=== PATIENT | male | born 2000 | race Asian ===

== ENCOUNTER → 2024-01-05 11:30 | Outpatient (REF) | payer OTHER, SELFPAY ==
--- NOTE | 2024-01-05 11:34 | HM_ITS ---
* Total monitoring time 3 days. * Underlying rhythm is sinus with an average rate of 71/Min. * Sinus tachycardia noted. * Occasional ventricular ectopy with a burden of 0.5%. * Rare supraventricular ectopy. * No significant pauses or AV blocks. * No patient markers or diary events. MTDD
== END ==
LOC: HO.CARD 11:30
PROVIDERS: Visit Provider Internal Medicine Nephrology
DX: R00.2 Palpitations (principal)
CPT/HCPCS: 93242

== ENCOUNTER → 2024-01-05 11:34 | Outpatient (BNV) | payer OTHER, SELFPAY | PROVIDERS: Visit Provider Internal Medicine | DX: R00.0 Tachycardia, unspecified (principal) | CPT/HCPCS: 93244 ==

== ENCOUNTER 2024-08-24 09:03 | Outpatient (REF) | payer OTHER, SELFPAY ==
--- OUTSIDE RECORDS SUMMARY | 2024-08-24 09:10 | XMS_ITS ---
Author Name [facility] Organization Unknown History of Medication Use Medication Directions Dispensed Refills Start Date End Date Stat No known medications No known medications 2022 active albuterol (PROVENTIL HFA; VENTOLIN HFA) 108 (90 Base) MCG/ACT inhaler Inhale 2 puffs 4 times daily (every 6 hours) as needed for wheezing or shortness of breath. 06/15/2022 active famotidine (PEPCID) 20 MG tablet Take 1 tablet (20 mg total) by mouth 2 (two) times a day. 11/12/2023 active Problems Problem Status Onset Date Problem Type Date of Resoluti on Source Chronic rhinitis active 2020-10-19 ProblemAct [facility] Wheezing active 2008-10-16 ProblemAct [facility] Renal dysplasia active 2020-02-29 ProblemAct HH CCT Need for vaccination active EncounterDiagnosisA ct CCT Asthma active 2020-02-29 ProblemAct CCT Abdominal bloating active EncounterDiagnosisAct [facility] Screen for STD (sexually transmitted disease) active EncounterDiagnosisAct [facility] Acute upper respiratory infection active 2008-10-20 ProblemAct [facility] Viremia active 2023-11-10 ProblemAct [facility] Immunizations Vaccine Date Source Lot Number Status Hep B, Unspecified 12/16/2006 [facility] comple vu Hepatitis A 02/16/2020 [facility] [id number] completed OPV 09/26/2000 [facility] completed DTaP, Unspecified 1999 [facility] complet ed OPV 1999 [facility] completed MMR 03/19/2007 [facility] completed DTaP, Unspecified 1999 [facility] complet ed OPV 1999 [facility] completed MMR 04/19/2001 [facility] completed Hib 09/26/2000 [facility] completed BCG 1999 [facility] completed Meningococcal Serogroup B 2-Dose 04/18/2020 [facility] ABX [id number] completed Meningococcal Serogroup B 2-Dose 02/16/2020 [facility] ABX [id number] completed HPV Nonavalent 11/10/2023 [facility] [id number] completed Hib 1999 [facility] completed DTaP, Unspecified 05/16/2005 [facility] complet ed Hib 1999 [facility] completed Meningococcal MCV4P (Menactra) 02/28/2016 [facility] [id number] completed OPV 05/16/2005 [facility] completed Hep B, Unspecified 03/19/2007 [facility] tai womack Tdap 01/01/2012 [facility] [id number] completed DTaP, Unspecified 09/26/2000 [facility] complet ed Hep B, Unspecified 10/20/2006 [facility] tai womack
[2024-08-24 10:37] LABS: MANUAL DIFF FLAG NO
[2024-08-24 10:41] LABS: Basophils Absolute Auto 0.1 X10*3/uL (0.0-0.2); Basophils Percent Auto 0.9 % (0-2); Eosinophils Absolute Auto 0.2 X10*3/uL (0.0-0.4); Eosinophils Percent Auto 2.3 % (0-4); Hemoglobin 17.2 g/dl (14.0-18.0); Imm Gran Abs Auto 0.04 X10*3/uL (0.00-0.03); Imm Gran Pct Auto 0.5 % (0.0-0.4); Lymphocytes Absolute Auto 2.7 X10*3/uL (1.2-4.9); Lymphocytes Percent Auto 32.4 % (20-40); Mean Corpuscular HGB Conc 34.4 g/dl (31.0-36.0); Mean Corpuscular Volume 84.2 fL (80.0-98.0); Mean Platelet Volume 10.5 fL (9.4-12.4); Monocytes Absolute Auto 0.7 X10*3/uL (0.1-1.2); Monocytes Percent Auto 8.5 % (2-11); Neutrophils Absolute Auto 4.5 x10*3/uL (2.0-8.3); Neutrophils Percent Auto 55.4 % (45-73); Platelet Count 218 X10*3/uL (160-400); Red Blood Count 5.94 X10*6/uL (4.60-5.80); Red Cell Distribution Width 12.2 % (11.0-16.0); White Blood Count 8.2 X10*3/uL (4.8-10.8)
[2024-08-24 11:03] LABS: Alanine Aminotransferase 25 U/L (0-40); Anion Gap 8 (12-20); Aspartate Amino Transferase 21 U/L (5-37); Blood Urea Nitrogen 17 mg/dL (9-16); Calcium 9.4 mg/dL (8.4-10.2); Carbon Dioxide 33 mmol/L (22-29); Chloride 102 mmol/L (96-108); Cholesterol 194 mg/dL (<200); Estimated Glomerular Filt Rate > 60; HDL Cholesterol 49 mg/dL (>40); Iron 126 mcg/dL (45-160); LDL Cholesterol Calculated 122 mg/dL (<100); Percent Iron Saturation 51 % (15-50); Potassium 4.1 mmol/L (3.3-5.1); Sodium 139 mmol/L (135-145); Total Iron Binding Capacity 247 mcg/dL (228-428); Triglycerides 119 mg/dL (<150); Unsaturated Iron Binding 121 ug/dL
[2024-08-24 11:12] LABS: Ferritin 308 ng/mL (20-250); TSH reflex Free T4 2.74 uIU/mL (0.32-4.0); Vitamin D 25-OH Total 28.4 ng/mL (>30)
[2024-08-24 11:21] LABS: Creatinine Urine 190.69 mg/dL; Total Protein Urine Random < 7 mg/dL (<12)
[2024-08-27 18:44] LABS: Gliadin Deamidated IgA Ab 1.1 U/mL; Gliadin Deamidated IgG Ab <1.0 U/mL; Immunoglobulin A 95 mg/dL (47-310); Transglutaminase Ab IgG <1.0 U/mL; Transglutaminase IgA <1.0 U/mL
[2024-08-29 22:58] LABS: CK-BB None Detected (None Detected); CK-MB 0 % (<5); CK-MM 100 % (95-100); Creatine Kinase,Total,Serum 99 U/L (44-196)
== END 2024-08-24 09:04 | disposition home or self-care (01) ==
LOC: HO.10HDL 09:03
PROVIDERS: Visit Provider Internal Medicine Nephrology
DX: Z00.00 Encounter for general adult medical examination without abnormal findings (principal); M79.10 Myalgia, unspecified site; R14.0 Abdominal distension (gaseous); R10.9 Unspecified abdominal pain
CPT/HCPCS: 36415; 80051; 80061; 82306; 82310; 82552; 82565; 82570; 82728; 82784; 83540; 84156; 84443; 84450; 84460; 84520; 85025; 86258; 86364

== ENCOUNTER 2024-08-26 11:34 | Outpatient (REF) | payer OTHER, SELFPAY | END 2024-08-26 11:35 | disposition home or self-care (01) | LOC: HO.10HDL 11:34 | PROVIDERS: Visit Provider Internal Medicine Nephrology | DX: R79.89 Other specified abnormal findings of blood chemistry (principal) | CPT/HCPCS: 36415; 81256 ==

== ENCOUNTER 2025-01-04 10:28 | Outpatient (AMB) | payer BC, SELFPAY ==
--- NOTE | 2025-01-04 10:37 | A.OFFVIS_ITS ---
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 Three weeks ago he started feeling palpitations and weakness. He said he was in the clinic during his rotation when he started feeling racing of his heart and palpitations. He said he subsequently felt very giddy and tired. Since then he has been experiencing that when he stands up and walks short distances his heart starts racing. He is saying that he is usually slow in his 50s but with the Apple watch he has noticed his heart rate to be as high as 100 at times. This is unusual for him. Was in at [employer] and was exercising regularly until a year ago. He has no skin rashes but gets some GI complaints off and on. He also had barotrauma in 2016 and had some dizziness and still gets some fullness in his ears and neck pain but current symptoms were are not related to those episodes. He had EKGs done before which showed T-wave inversions in the lateral leads. Previously had mildly elevated ferritin level but his genetic testing for hemochromatosis was negative. [facility] Family History (Updated 01/04/25 @ 10:42 by ALISA Ramirez) Father No problems noted. Mother No problems noted. Social History (Updated 01/04/25 @ 10:42 by ALISA Ramirez) Patient Tobacco Use Status: Never used Tobacco Review of Systems Const Denies chills, Denies daytime sleepiness, Denies fatigue, Denies fever(s), Denies frequent falls, Denies poor appetite, Denies snoring, Denies stops breathing during sleep, Denies weakness, Denies weight gain and Denies weight loss Eyes Denies loss of vision ENT Denies dizziness and Denies hearing loss Card Denies chest pain, Denies claudication, Denies leg edema, Denies lightheadedness, Denies palpitations, Denies dyspnea, Denies dyspnea on exertion and Denies orthopnea Resp Denies cough, Denies excessive phlegm production, Denies dyspnea, Denies dyspnea on exertion, Denies snoring and Denies wheezing GI Denies abdominal pain, Denies hematochezia, Denies change in bowel habits, Denies nausea and Denies vomiting Denies dysuria and Denies urinary frequency Musc Denies arthralgias, Denies muscle weakness, Denies numbness and Denies other (frequent falls) Skin/Breast Denies nail changes and Denies rash Neuro Denies Abnormal speech present, Denies dizziness, Denies frequent falls, Denies loss of vision, Denies memory loss, Denies numbness and Denies weakness Psych Denies depression and Denies memory loss Endo Denies fatigue and Denies palpitations Jesus/Lymph Reports easy bruising and Reports other (anemia) Aller/Immun Denies wheezing Physical Exam Vital Signs: Last Vital Signs Pulse 67 01/04/25 10:38 BP 124/82 01/04/25 10:38 BMI result Body Mass Index 26.1 GENERAL APPEARANCE: in no acute distress, pleasant. NECK: no carotid bruit, no jugular venous distention. SKIN: no suspicious lesions, warm and dry. HEART: no murmurs, regular rate and rhythm. LUNGS: clear to auscultation bilaterally. ABDOMEN: soft, nontender. EXTREMITIES: no edema. PERIPHERAL PULSES: equal. NEUROLOGIC: No gross deficits, AAO X 3 Neuro Speech: No Abnormal speech present Office Procedures EKG Details: Sinus rhythm 67 beats per minute, normal axis nonspecific T-wave changes, septal infarct, QTC 365 milliseconds. [id number], Complete Assessment & Plan Assessment & Plan (1) Palpitations: Code(s): R00.2 - Palpitations Category: Medical (2) Dizziness: Code(s): R42 - Dizziness and giddiness Category: Medical Plan Pleasant 24 year gentleman who is here for dizziness and palpitations. Symptoms started approximately 3 weeks ago but he did have some palpitations a year so ago to when he had Holter monitor on him. He is saying he was not getting dizzy at that time but was getting episodic tachycardia. Physical examination and EKG are not suggestive of any obvious pathology. His main issue currently is intolerance of upright posture. I think we should start with start loading and hydration. I have advised him to drink Gatorade and started doing upright exercise like exercise bike or rowing machine. We will arrange an echocardiogram to rule out any structural heart issues. We will do 14 day Holter monitor to rule out any arrhythmia. If there is any change in symptomatology then he will reach out to us. Thank you for allowing me to participate in the care of your patient. Please feel free to contact me if you have any questions. Orders: Orders CA echo transthoracic complete Today R42 - Dizziness and giddiness ECG 14 day holter monitor Today R42 - Dizziness and giddiness Medications: Discontinued levofloxacin Discontinued Reason: Patient Completed Course 500 mg PO DAILY 7 tabs 0RF Coding Level of Care Code Procedure Only Diagnoses Palpitations R00.2 Dizziness R42 CPT Codes EKG - CPT: 51394-[id number], Complete ([id number])
[2025-01-04 10:38] VITALS: BP 124/82; PULSE 67; BMI 26.1
--- OUTSIDE RECORDS SUMMARY | 2025-01-04 11:50 | XMS_ITS | Clinical Summary ---
Author Organization [facility] Facility Address [address] [place] [id number] Care Team Providers Care Marine Engine Driver Name Role Phone Unavailable Primary Care Provider Unavailabl e Active Problems Problem Noted Date Diagnosed Date Well adult check up 09/04/2022 Social History Tobacco Use Types Packs/Day Years Used Date Smoking Tobacco: Never Assessed Sex and Gender Information Value Date Recorded Sex Assigned at Not on file Legal Sex Male 4:57 PM EST Gender Identity Not on file Sexual Orientation Not on file Plan of Treatment Health Maintenance Due Date Last Done Comments Hepatitis B Vaccine (1 of 3 - 19+ 3-dose series) 06/02 Pneumococcal Vaccine: Peds ( 0 to 5 Years) and At-Risk Patients (6 to 49 Years) (1 of 2 - PCV) 2018 Influenza Vaccine (Season Ended) 2025
--- OUTSIDE RECORDS SUMMARY | 2025-01-04 11:50 | XMS_ITS | Clinical Summary ---
Author Organization [facility] Address [address] [place] [id number] Care Team Providers Care Care Analyst Name Role Phone Gautam Dougherty MD Primary Care Provider [phone] Allergies No known active allergies Medications No known medications Social History Tobacco Use Types Packs/Day Years Used Date Smoking Tobacco: Never Smokeless Tobacco: Never Alcohol Use Standard Drinks/Week Comments No 0 (1 standard drink = 0.6 oz pur e alcohol) Sex and Gender Information Value Date Recorded Sex Assigned at Not on file Legal Sex Male 5:39 AM EST Gender Identity Not on file Sexual Orientation Not on file Last Filed Vital Signs Vital Sign Reading Time Taken Comments Blood Pressure 139/81 08/03/2019 10:44 AM EST Pulse 59 08/03/2019 10:44 AM EST Temperature - - Respiratory Rate 16 07/30/2019 3:49 PM EST Oxygen Saturation 100% 07/30/2019 3:49 PM EST Inhaled Oxygen Concentration - - Weight - - Height - - Body Mass Index - - Plan of Treatment Health Maintenance Due Date Last Done Comments HIV Screening 1999 HPV Vaccines (1 - Male 3-dose series) 2014 DTaP,Tdap,and Td Vaccines (5 - Td or Tdap) 12/31/2021 01/01/2012, 05/16/2005, 09/26/2000, Additional history exists COVID-19 Vaccine ( - 2023- season) 2024 Influenza Vaccine (Season Ended) 2025 Zoster Vaccines (1 of 2) 2049 Hepatitis B Vaccines Completed 03/19/2007, 12/16/2006, 10/20/2006 MMR Vaccines Completed 03/19/2007, 04/19/2001 Meningococcal Vaccine Completed 02/28/2016 Hepatitis A Vaccines Aged Out No long er eligible based on patient's age to complete this topic Pneumococcal Vaccine: Pediatrics (0 to 5 Years) and At-Risk Patients (6 to 49 Years) Aged Out No longer eligible based on patient's age to complete this topic Insurance [employer] OPEN ACCESS Care Teams Care Analyst Relationship Specialty Start Date End Date Gautam Dougherty MD [address] [place] [id number] PCP - General Pediatrics 07/30/19
--- OUTSIDE RECORDS SUMMARY | 2025-01-04 11:50 | XMS_ITS | Data Portability ---
Author Organization [place] - [facility], [facility] Address [address] [place] [address] Assessment Encounter Date Assessment Date Assessment LastModified by Organization Details LastModified Time 02/21/2016 02/21/2016 Healthy 15 year old. Nl Growth and dev renal scarring- was seen by Dr Paty key reflux- was stable when followed up 7years ago- Asthma- uses alb on occasion. uses alb rarely with sport Cards- ? split S2- will get cards eval- ? ASD jyunis Not available 02/21/2016 17:28:14 11/16/2017 11/16/2017 Healthy 17 year old. Nl Growth and dev renal scarring- was seen by Dr Paty key reflux- was stable when followed up 9years ago - overdue for MYRON Wong will schedule Asthma- uses alb on occasion. uses alb rarely with sport jyunis Not available 11/16/2017 13:51:53 02/16/2020 02/16/2020 Healthy 19 year old. Nl Growth and dev renal scarring- was seen by Dr Paty key reflux- was stable when followed up 9years ago - overdue for MYRON Wong will schedule Asthma- uses alb on occasion. uses alb rarely with sport some issues with incompleted emptying- has a urology eval in 2 weeks week jyunis Not available 02/16/2020 10:38:01 Plan of Treatment Reminders Order Date Submit Date Provider Last Modified By Organization Details Last Modified Time Details Appointments None recorded. Lab CBC w/ auto diff 2019 020 DANK [facility], [address], [address], [place], [address], 0 14:40:18 lipid panel, serum 2019 [facility], [address], [address], [place], [address], 0 14:40:16 BMP, serum or plasma 2019 020 [facility], [address], [address], [place], [address], 0 14:40:17 protein, total, urine 2019 020 [facility], [address], [address], [place], [address], 0 14:40:18 CT + NG DNA, PCR, urine 2019 020 DANK [facility] (Centralized Electronic Ordering - All Locations), Patient Can Go To The Location Of Their Choice, 0 08:00:41 CBC w/ auto diff 2017 018 jyunis [facility] (Centralized Electronic Ordering - All Locations), Patient Can Go To The Location Of Their Choice, 8 17:00:33 lipid panel, serum 2017 018 jyunis [facility] (Centralized Electronic Ordering - All Locations), Patient Can Go To The Location Of Their Choice, 8 17:00:33 BMP, serum or plasma 2017 018 jyunis [facility] (Centralized Electronic Ordering - All Locations), Patient Can Go To The Location Of Their Choice, 8 17:00:33 protein, total, urine 2017 018 jyunis [facility] (Centralized Electronic Ordering - All Locations), Patient Can Go To The Location Of Their Choice, 8 17:00:33 urinalysis , complete 2015 016 DBA_PATCH_ [id number] [facility] (Centralized Electronic Ordering - All Locations), Patient Can Go To The Location Of Their Choice, [id number] 6 04:08:56 protein/cr eatinine, ratio, urine 2015 016 cprouty [facility] (Centralized Electronic Ordering - All Locations), Patient Can Go To The Location Of Their Choice, [id number] 7 14:19:50 creatinine , blood 2015 016 DBA_PATCH_ [id number] [facility] (Centralized Electronic Ordering - All Locations), Patient Can Go To The Location Of Their Choice, [id number] 6 04:08:54 bun (blood urea nitrogen), serum or plasma 2015 016 DBA_PATCH_ [id number] [facility] (Centralized Electronic Ordering - All Locations), Patient Can Go To The Location Of Their Choice, [id number] 6 04:09:03 Referral nephrologi referral 2019 020 kt Helms MD, [address] [facility], [facility] [address], [place], [address], 0 12:20:23 pediatric cardiologi referral 2015 016 DBA_PATCH_ [id number] Not available 6 04:08:57 Procedures None recorded. Surgeries None recorded. Imaging None recorded. Medication Orders None recorded. Patient TargetsNo targets recorded. Patient Instructions Encounter Date Encounter Id Patient Instructions Last Modified By Organization Details Last Modified Time 02/21/2016 [id number] patient health questionnaire modified for adolescents* [id number] Not available 08/23/2016 04:08:56 [id number] program - 1 hour of exercise [id number] Not available 08/23/2016 04:09:04 11/16/2017 [id number] program - 5 fruits & veggies jyunis Not available 11/16/2017 13:37:46 5210 program - 1 hour of exercise jyunis Not available 11/16/2017 13:37:46 patient health questionnaire depression assessment* DANK Not available 11/16/2017 14:01:25 immunization: wh at you need to know jyunis Not available 11/16/2017 13:37:46 02/16/2020 [id number] program - 5 fruits & veggies jyunis Not available 02/16/2020 10:38:37 5210 program - 1 hour of exercise jyunis Not available 02/16/2020 10:38:36 patient health questionnaire depression assessment* jyunis Not available 02/16/2020 10:38:37 immunization: wh at you need to know jyunis Not available 02/16/2020 10:38:37 Reason for Referral Shop Director Refer ral for Abnormal heart beat Referring Physician: Gautam Dougherty, Pediatric Medicine, Encounter Date: 02/21/2016 Unix Systems Administrator 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 Referring Physician: Gautam Dougherty, Pediatric Medicine, Encounter Date: 02/16/2020 Results Created Date Observation Date Name Description Value Unit Range Abnormal Flag Note LastModifiedBy Organization Detail LastModifiedTime 05/01/20 16 05/01/2016 creat inine , serum or plasm a creatinine 1.2 mg/dL (0.7-1 .2) Not Available [facility] (Centralized Electronic Ordering - All Locations) Patient Can Go To The Location Of Their Choice, 05/01/2016 16:04:29 05/01/20 16 05/01/2016 creat inine , serum or plasm a est GFR non Not report ed if <18 yrs mL/mi n/1.7 3_M2 Not Available [facility] (Centralized Electronic Ordering - All Locations) Patient Can Go To The Location Of Their Choice, 05/01/2016 16:04:29 05/01/20 16 05/01/2016 creat inine , serum or plasm a est GFR Not report ed if <18 yrs mL/mi n/1.7 3_M2 Testi ng perfo rmed or repor jenaro by [facility] Refer ence Labor atori es, a Servi ce of [facility], [facility] [address] [facility] [place] [address] Chana england MD, PhD, Medic al [facility] Not Available [facility] (Centralized Electronic Ordering - All Locations) Patient Can Go To The Location Of Their Choice, [id number] 05/01/2016 16:04:29 05/01/20 16 05/01/2016 bun (bloo d urea nitro gen), serum or plasm a BUN 15 mg/dL (5-18) Testi ng perfo rmed or repor jenaro by [facility] Refer ence Labor atori es, a Servi ce of [facility] Medic al Cente r, [address] [place] [address] Chana england MD, PhD, [facility] Not Available [facility] (Centralized Electronic Ordering - All Locations) Patient Can Go To The Location Of Their Choice, 05/01/2016 16:04:28 05/01/20 16 05/01/2016 prote in:cr eatin ine ratio , urine TP/cr ratio 0.05 (0-0.2 ) Not Available [facility] (Centralized Electronic Ordering - All Locations) Patient Can Go To The Location Of Their Choice, 05/01/2016 14:49:47 05/01/20 16 05/01/2016 prote in:cr eatin ine ratio , urine urine protein 8 mg/dL Not Available [facility] (Centralized [facility] Ordering - All Locations) Patient Can Go To The Location Of Their Choice, 05/01/2016 14:49:47 05/01/20 16 05/01/2016 prote in:cr eatin ine ratio , urine urine creat 161.9 mg/dL Testi ng perfo rmed or repor jenaro by [facility] Refer ence Labor atori es, a Servi ce of [facility] Medic al Cente r, [address] [place] [address] Chana england MD, PhD, [facility] Not Available [facility] (Centralized Electronic Ordering - All Locations) Patient Can Go To The Location Of Their Choice, 05/01/2016 14:49:47 05/01/2005/01/2016 urina lysis , compl ete appear/color LIGHT YELLO W CLEAR Not Available [facility] (Centralized Electronic Ordering - All Locations) Patient Can Go To The Location Of Their Choice, 05/01/2016 14:10:23 05/01/20 16 05/01/2016 urina lysis , compl ete sp. gravity 1.014 (1.002 -1.030 ) Not Available [facility] (Centralized Electronic Ordering - All Locations) Patient Can Go To The Location Of Their Choice, 05/01/2016 14:10:05/01/2005/01/2016 urina lysis , compl ete urine pH 6.0 (4.0-8 .0) Not Available [facility] (Centralized Electronic Ordering - All Locations) Patient Can Go To The Location Of Their Choice, 05/01/2016 14:10:05/01/2005/01/2016 urina lysis , compl ete urine albumin NEGATI VE (neg) Not Available [facility] (Centralized Electronic Ordering - All Locations) Patient Can Go To The Location Of Their Choice, 05/01/2016 14:10:05/01/2005/01/2016 urina lysis , compl ete urine glucose NEGATI VE (neg) Not Available [facility] (Centralized Electronic Ordering - All Locations) Patient Can Go To The Location Of Their Choice, 05/01/2016 14:10:05/01/2005/01/2016 urina lysis , compl ete urine ketones NEGATI VE (neg) Not Available [facility] (Centralized Electronic Ordering - All Locations) Patient Can Go To The Location Of Their Choice, 05/01/2016 14:10:05/01/2005/01/2016 urina lysis , compl ete urine bilirubin NEGATI VE (neg) Not Available [facility] (Centralized Electronic Ordering - All Locations) Patient Can Go To The Location Of Their Choice, 05/01/2016 14:10:05/01/2005/01/2016 urina lysis , compl ete urine hemoglobn NEGATI VE (neg) Not Available [facility] (Centralized Electronic Ordering - All Locations) Patient Can Go To The Location Of Their Choice, 05/01/2016 14:10:05/01/2005/01/2016 urina lysis , compl ete urine nitrite NEGATI VE (neg) Not Available [facility] (Centralized Electronic Ordering - All Locations) Patient Can Go To The Location Of Their Choice, 05/01/2016 14:10:05/01/2005/01/2016 urina lysis , compl ete urine leukocyte NEGATI VE (neg) Not Available [facility] (Centralized Electronic Ordering - All Locations) Patient Can Go To The Location Of Their Choice, 05/01/2016 14:10:05/01/2005/01/2016 urina lysis , compl ete urobilinogen NORMAL mg/dL (norm) Not Available [facility] ([facility] Order[facility] - All Locations) Patient Can Go To The Location Of Their Choice, 05/01/2016 14:10:05/01/2005/01/2016 urina lysis , compl ete urine WBC's 1 /hpf (0-5) Not Available [facility] (Central[facility] Ordering - All Locations) Patient Can Go To The Location Of Their Choice, 05/01/2016 14:10:05/01/2005/01/2016 urina lysis , compl ete urine RBC's NONE SEEN /hpf (<3) Not Available [facility] (Centralized Electronic Ordering - All Locations) Patient Can Go To The Location Of Their Choice, 05/01/2016 14:10:05/01/2005/01/2016 urina lysis , compl ete mucus SLIGHT /lpf Testi ng perfo rmed or repor jenaro by [facility], a [facility], [address] [place] [address] Chana negland MD, PhD, Medic al [facility] tor Not Available [facility] (Centralized Electronic Ordering - All Locations) Patient Can Go To The Location Of Their Choice, 05/01/2016 14:10:05/01/2005/01/2016 urine colle ction perio d urine collection period RANDOM hrs Testi ng perfo rmed or repor jenaro by [facility], a [facility], [address] [place] [address] Chana england MD, PhD, [facility] al [facility] tor Not Available [facility] (Centralized Electronic Ordering - All Locations) Patient Can Go To The Location Of Their Choice, 05/01/2016 14:06:02 11/17/19 18 11/16/2017 patie nt healt h quest ionna gilbert depre ssion asses sment * PHQ-9 negati ve Not Available [facility] [address] [facility], [place], [address], 11/16/2017 13:14:48 03/26/20 19 03/28/2019 lipid panel , serum cholesterol, total 198 mg/dL <170 high Not Available [facility] [address], [address], 03/28/2019 19:17:33 03/26/20 19 03/28/2019 lipid panel , serum HDL cholesterol 80 mg/dL >45 normal Not Available [facility] [address], [address], 03/28/2019 19:17:33 03/26/20 19 03/28/2019 lipid panel , serum triglyceride s 86 mg/dL <90 normal Not Available [facility] [address], [address], 03/28/2019 19:17:33 03/26/2003/28/2019 lipid panel , serum LDL-choleste rol 100 mg/dL _(jackie c) <110 normal LDL-C is now calcu lated using the Octavia n-Hop kins samiu ca n, which is a valid ated novel abraham aguilar accur acy than the Fried shayne equat ion in the estim ation of LDL-C . Octavia CHAUHAN et al. NATIVIDAD. 2013; 310(1 9): 2061- 2068 (http ://ed ucati on.BitX clementineTeam Everest. [employer]/f aq/FA Q164) Not Available [facility] [address], [address], 03/28/2019 19:17:33 03/26/20 19 03/28/2019 lipid panel , serum chol/HDLC ratio 2.5 (calc ) <5.0 normal Not Available [facility] [address] [place], [place], [address], 03/28/2019 19:17:33 03/26/20 19 03/28/2019 lipid panel , serum non HDL cholesterol 118 mg/dL _(jackie c) <120 normal For patie nts with diabe gurinder plus 1 major ASCVD risk facto r, treat ing to a non-H DL-C goal of <100 mg/dL (LDL- C of <70 mg/dL ) is consi dered a thera peuti c optio n. Not Available [facility] [place] [facility] [address] [place], [place], [address], 03/28/2019 19:17:33 03/26/20 19 03/28/2019 BMP, serum or plasm a glucose 82 mg/dL 65-99 normal Fasti ng refer ence inter be Not Available [facility] [place] [facility] [address] [place], [place], [address], 03/28/2019 19:17:33 03/26/20 19 03/28/2019 BMP, serum or plasm a urea nitrogen (BUN) 15 mg/dL 7-20 normal Not Available [facility] [place] [facility] [address] [place], [place], [address], 03/28/2019 19:17:33 03/26/20 19 03/28/2019 BMP, serum or plasm a creatinine 1.16 mg/dL 0.60-1 .26 normal Not Available [facility] [place] [facility] [address] [place], [place], [address], 03/28/2019 19:17:33 03/26/2003/28/2019 BMP, serum or plasm a eGFR non-afr. zambian 91 mL/mi n/1.7 3m2 > or = 60 normal Not Available [facility] [place] [facility] [address] [place], [place], [address], 03/28/2019 19:17:33 03/26/20 19 03/28/2019 BMP, serum or plasm a eGFR 105 mL/mi n/1.7 3m2 > or = 60 normal Not Available [facility] [address], [address], 03/28/2019 19:17:33 03/26/20 19 03/28/2019 BMP, serum or plasm a BUN/creatini ne ratio NOT APPLIC ABLE (calc ) 6-22 Not Available [facility] [address], [address], 03/28/2019 19:17:33 03/26/20 19 03/28/2019 BMP, serum or plasm a sodium 140 mmol/ L 135-14 6 normal Not Available [facility] [address], [address], 03/28/2019 19:17:33 03/26/20 19 03/28/2019 BMP, serum or plasm a potassium 4.0 mmol/ L 3.8-5. 1 normal Not Available [facility] [address], [address], 03/28/2019 19:17:33 03/26/20 19 03/28/2019 BMP, serum or plasm a chloride 100 mmol/ L 98-110 normal Not Available [facility] [address], [address], 03/28/2019 19:17:33 03/26/20 19 03/28/2019 BMP, serum or plasm a carbon dioxide 31 mmol/ L 20-32 normal Not Available [facility] [address], [address], 03/28/2019 19:17:33 03/26/20 19 03/28/2019 BMP, serum or plasm a calcium 10.0 mg/dL 8.9-10 .4 normal Not Available [facility] [address] [place], [place], [address], 03/28/2019 19:17:33 03/26/20 19 03/28/2019 CBC w/ auto diff white blood cell count 6.0 thous and/u L 3.8-10 .8 normal Not Available [facility] [place] [facility] [address], [place], [address], 03/28/2019 19:17:34 03/26/20 19 03/28/2019 CBC w/ auto diff red blood cell count 5.96 cecy on/uL 4.20-5 .80 high Not Available [facility] [address], [place], [address], 03/28/2019 19:17:34 03/26/20 19 03/28/2019 CBC w/ auto diff hemoglobin 17.1 g/dL 13.2-1 7.1 normal Not Available [facility] [address], [place], [address], 03/28/2019 19:17:34 03/26/20 19 03/28/2019 CBC w/ auto diff hematocrit 50.3 % 38.5-5 0.0 high Not Available [facility] [address], [place], [address], 03/28/2019 19:17:34 03/26/20 19 03/28/2019 CBC w/ auto diff MCV 84.4 fL 80.0-1 00.0 normal Not Available [facility] [address], [place], [address], 03/28/2019 19:17:34 03/26/20 19 03/28/2019 CBC w/ auto diff MCH 28.7 pg 27.0-3 3.0 normal Not Available [facility] [address], [place], [address], 03/28/2019 19:17:34 03/26/20 19 03/28/2019 CBC w/ auto diff MCHC 34.0 g/dL 32.0-3 6.0 normal Not Available [facility] [place] [facility] [address], [place], [address], 03/28/2019 19:17:34 03/26/20 19 03/28/2019 CBC w/ auto diff RDW 12.5 % 11.0-1 5.0 normal Not Available [facility] [place] [facility] [address], [place], [address], 03/28/2019 19:17:34 03/26/20 19 03/28/2019 CBC w/ auto diff platelet count 206 thous and/u L 140-40 0 normal Not Available [facility] [place] [facility] [address], [place], [address], 03/28/2019 19:17:34 03/26/20 19 03/28/2019 CBC w/ auto diff MPV 10.0 fL 7.5-12 .5 normal Not Available [facility] [place] [facility] [address], [place], [address], 03/28/2019 19:17:34 03/26/20 19 03/28/2019 CBC w/ auto diff absolute neutrophils 2574 cells /uL 1500-7 800 normal Not Available [facility] [place] [facility] [address], [place], [address], 03/28/2019 19:17:34 03/26/20 19 03/28/2019 CBC w/ auto diff absolute lymphocytes 2670 cells /uL 850-39 00 normal Not Available [facility] [place] [facility] [address], [place], [address], 03/28/2019 19:17:34 03/26/20 19 03/28/2019 CBC w/ auto diff absolute monocytes 582 cells /uL 200-95 0 normal Not Available [facility] [place] [facility] [address], [place], [address], 03/28/2019 19:17:34 03/26/20 19 03/28/2019 CBC w/ auto diff absolute eosinophils 144 cells /uL 15-500 normal Not Available [facility] [place] [facility] [address], [place], [address], 03/28/2019 19:17:34 03/26/20 19 03/28/2019 CBC w/ auto diff absolute basophils 30 cells /uL 0-200 normal Not Available [facility] [place] [facility] [address], [place], [address], 03/28/2019 19:17:34 03/26/20 19 03/28/2019 CBC w/ auto diff neutrophils 42.9 % normal Not Available [facility] [place] [facility] [address], [place], [address], 03/28/2019 19:17:34 03/26/20 19 03/28/2019 CBC w/ auto diff lymphocytes 44.5 % normal Not Available [facility] [place] [facility] [address], [place], [address], 03/28/2019 19:17:34 03/26/2003/28/2019 CBC w/ auto diff monocytes 9.7 % normal Not Available [facility] [place] [facility] [address], [place], [address], 03/28/2019 19:17:34 03/26/20 19 03/28/2019 CBC w/ auto diff eosinophils 2.4 % normal Not Available [facility] [place] [facility] [address], [place], [address], 03/28/2019 19:17:34 03/26/20 19 03/28/2019 CBC w/ auto diff basophils 0.5 % normal Not Available [facility] [address], [address], 03/28/2019 19:17:34 03/26/20 19 03/28/2019 prote in:cr eatin ine ratio , urine creatinine, random urine 122 mg/dL 20-320 normal Not Available [facility] [address], [place], [address], 03/28/2019 19:17:34 03/26/20 19 03/28/2019 prote in:cr eatin ine ratio , urine protein/crea tinine ratio 49 mg/g_ creat 22-128 normal Not Available [facility] [address], [address], 03/28/2019 19:17:34 03/26/20 19 03/28/2019 prote in:cr eatin ine ratio , urine protein, total, random ur 6 mg/dL 5-25 normal Not Available [facility] [address], [place], [address], 03/28/2019 19:17:34 02/16/20 20 02/17/2020 CT + NG DNA, PCR, urine urine chlamydia amp probe (neg) NEGAT KYLIE No Chlam ydia Trach omati s RNA detec jenaro in this patie nt's sampl e (REFE RENCE RANGE /NORM AL VALUE : NOT DETEC JENARO) Note: This test uses trans cript ion- media jenaro ampli ficat ion metho d to detec t rRNA from C. Trach omati s Not Available [facility] (Centralized Electronic Ordering - All Locations) Patient Can Go To The Location Of Their Choice, [id number] 02/17/2020 08:00:41 02/16/20 20 02/17/2020 CT + NG DNA, PCR, urine urine GC amp probe (neg) NEGAT KYLIE No Neiss eria Gonor rhoea e RNA detec jenaro in this patie nt's sampl e (REFE RENCE RANGE /NORM AL VALUE : NOT DETEC JENARO) NOTE: This test uses trans cript ion-m ediat ed ampli ficat ion metho d to detec t rRNA from N.Luis orrho eae. A negat kylie resul t does not precl ude infec tion. In the case of a negat kylie urine resul t, testi ng of an endoc ervic al(fe male) or ureth ral (male ) speci men is recom rhys d if there is high clini jackie suspi cion of infec tion. Due to very high sensi tivit y of Nucle ic Acid Ampli ficat ion Test, false posit kylie resul ts may occur . There fore, speci men handl ing is extre savage impor tant. In patie nts in whom the disea se is unlik andres, addit ional sampl e for testi ng shoul d be consi dered after an initi al posit kylie resul t. The perfo rmanc e eric cteri stics of this test have not been evalu ated in child tania. The Aptim a Combo 2 assay is not inten ded for the evalu ation of suspe cted sexua l abuse or for other medic o-leg al indic ation s. The order ing provi alejandro shoul d asses s if the patie nt had conse nsual sex witho ut risk of sexua l abuse . Consu lt [facility] if neede d. Conta ct phone numbe r [phone]. Thera peuti c failu re or succe ss canno t be deter mined with the Aptim a Combo 2 assay since nucle ic acid may persi st follo wing appro priat e antim icrob ial thera py. The Cent[facility] for Disea se Contr ol and Preve ntion ([facility]) recom mends confi rmato ry retes ting using cultu re or a diffe rent nucle ic acid ampli ficat ion test when posit kylie resul ts occur , if indic ated. Not Available [facility] (Centralized Electronic Ordering - All Locations) Patient Can Go To The Location Of Their Choice, [id number] 02/17/2020 08:00:41 02/16/20 20 02/16/2020 patie nt healt h quest ionna gilbert preston * PHQ-9 negati ve Not Available [facility] [address] [facility], [place], [address], 02/14/2020 14:23:39 04/24/20 20 04/27/2020 lipid panel , serum cholesterol, total 196 mg/dL <200 normal Not Available [facility] [address], [address], 04/27/2020 14:40:16 04/24/20 20 04/27/2020 lipid panel , serum HDL cholesterol 69 mg/dL > or = 40 normal Not Available [facility] [place] [facility] [address], [address], 04/27/2020 14:40:16 04/24/20 20 04/27/2020 lipid panel , serum triglyceride s 69 mg/dL <150 normal Not Available [facility] [place] [facility] [address], [address], 04/27/2020 14:40:16 04/24/20 20 04/27/2020 lipid panel , serum LDL-choleste rol 111 mg/dL _(jackie c) high Refer ence range : <100 Manjula able range <100 mg/dL for prima ry preve ntion ; <70 mg/dL for patie nts with CHD or diabe tic patie nts with > or = 2 CHD risk facto rs. LDL-C is now calcu lated using the Octavia n-Hop kins beau swain, which is a valid ated novel abraham aguilar accur acy than the Fried shayne equat ion in the estim ation of LDL-C . Octavia swain SS et al. NATIVIDAD. 2013; 310(1 9): 2061- 2068 (http ://ed ucati on.Qu estDi davion tics. com/f aq/FA Q164) Not Available [facility] [place] [facility] [address] [place], [place], [address], 04/27/2020 14:40:16 04/24/20 20 04/27/2020 lipid panel , serum chol/HDLC ratio 2.8 (calc ) <5.0 normal Not Available [facility] [place] [facility] [address] [place], [place] [place], [address], 04/27/2020 14:40:16 04/24/20 20 04/27/2020 lipid panel , serum non HDL cholesterol 127 mg/dL _(jackie c) <130 normal For patie nts with diabe gurinder plus 1 major ASCVD risk facto r, treat ing to a non-H DL-C goal of <100 mg/dL (LDL- C of <70 mg/dL ) is consi dered a thera peuti c optio n. Not Available [facility] [place] [facility] [address] [place], [place], [address], 04/27/2020 14:40:16 04/24/2004/27/2020 BMP, serum or plasm a glucose 85 mg/dL 65-99 normal Fasti ng refer ence inter be Not Available [facility] [place] [facility] [address] [place], [place], [address], 04/27/2020 14:40:17 04/24/2004/27/2020 BMP, serum or plasm a urea nitrogen (BUN) 17 mg/dL 7-25 normal Not Available [facility] [place] [facility] [address] [place], [place], [address], 04/27/2020 14:40:17 04/24/20 20 04/27/2020 BMP, serum or plasm a creatinine 1.19 mg/dL 0.60-1 .35 normal Not Available [facility] [place] [facility] [address] [place], [place], [address], 04/27/2020 14:40:17 04/24/20 20 04/27/2020 BMP, serum or plasm a eGFR non-afr. zambian 87 mL/mi n/1.7 3m2 > or = 60 normal Not Available [facility] [place] [facility] [address], [place], [address], 04/27/2020 14:40:17 04/24/20 20 04/27/2020 BMP, serum or plasm a eGFR 101 mL/mi n/1.7 3m2 > or = 60 normal Not Available [facility] [place] [facility] [address] [place], [place], [address], 04/27/2020 14:40:17 04/24/20 20 04/27/2020 BMP, serum or plasm a BUN/creatini ne ratio NOT APPLIC ABLE (calc ) 6-22 Not Available [facility] [place] [facility] [address], [place], [address], 04/27/2020 14:40:17 04/24/20 20 04/27/2020 BMP, serum or plasm a sodium 140 mmol/ L 135-14 6 normal Not Available [facility] [place] [facility] [address], [place], [address], 04/27/2020 14:40:17 04/24/20 20 04/27/2020 BMP, serum or plasm a potassium 4.6 mmol/ L 3.5-5. 3 normal Not Available [facility] [address], [place], [address], 04/27/2020 14:40:17 04/24/20 20 04/27/2020 BMP, serum or plasm a chloride 100 mmol/ L 98-110 normal Not Available [facility] [place] [facility] [address], [place], [address], 04/27/2020 14:40:17 04/24/20 20 04/27/2020 BMP, serum or plasm a carbon dioxide 30 mmol/ L 20-32 normal Not Available [facility] [place] [facility] [address], [place], [address], 04/27/2020 14:40:17 04/24/20 20 04/27/2020 BMP, serum or plasm a calcium 9.9 mg/dL 8.6-10 .3 normal Not Available [facility] [place] [facility] [address], [place], [address], 04/27/2020 14:40:17 04/24/20 20 04/27/2020 CBC w/ auto diff white blood cell count 5.9 thous and/u L 3.8-10 .8 normal Not Available [facility] [place] [facility] [address], [place], [address], 04/27/2020 14:40:18 04/24/20 20 04/27/2020 CBC w/ auto diff red blood cell count 5.84 cecy on/uL 4.20-5 .80 high Not Available [facility] [place] [facility] [address], [place], [address], 04/27/2020 14:40:18 04/24/20 20 04/27/2020 CBC w/ auto diff hemoglobin 17.5 g/dL 13.2-1 7.1 high Not Available [facility] [place] [facility] [address], [place], [address], 04/27/2020 14:40:18 04/24/20 20 04/27/2020 CBC w/ auto diff hematocrit 49.4 % 38.5-5 0.0 normal Not Available [facility] [place] [facility] [address], [place], [address], 04/27/2020 14:40:18 04/24/20 20 04/27/2020 CBC w/ auto diff MCV 84.6 fL 80.0-1 00.0 normal Not Available [facility] [place] [facility] [address], [place], [address], 04/27/2020 14:40:18 04/24/20 20 04/27/2020 CBC w/ auto diff MCH 30.0 pg 27.0-3 3.0 normal Not Available [facility] [place] [facility] [address], [place], [address], 04/27/2020 14:40:18 04/24/20 20 04/27/2020 CBC w/ auto diff MCHC 35.4 g/dL 32.0-3 6.0 normal Not Available [facility] [place] [facility] [address], [place], [address], 04/27/2020 14:40:18 04/24/20 20 04/27/2020 CBC w/ auto diff RDW 12.3 % 11.0-1 5.0 normal Not Available [facility] [place] [facility] [address], [place], [address], 04/27/2020 14:40:18 04/24/20 20 04/27/2020 CBC w/ auto diff platelet count 217 thous and/u L 140-40 0 normal Not Available [facility] [address], [place], [address], 04/27/2020 14:40:18 04/24/20 20 04/27/2020 CBC w/ auto diff MPV 10.0 fL 7.5-12 .5 normal Not Available [facility] [place] [facility] [address], [place], [address], 04/27/2020 14:40:18 04/24/20 20 04/27/2020 CBC w/ auto diff absolute neutrophils 2661 cells /uL 1500-7 800 normal Not Available [facility] [address] [place], [address], 04/27/2020 14:40:18 04/24/20 20 04/27/2020 CBC w/ auto diff absolute lymphocytes 2496 cells /uL 850-39 00 normal Not Available [facility] [place] [facility] [address], [place], [address], 04/27/2020 14:40:18 04/24/20 20 04/27/2020 CBC w/ auto diff absolute monocytes 543 cells /uL 200-95 0 normal Not Available [facility] [place] [facility] [address], [place], [address], 04/27/2020 14:40:18 04/24/20 20 04/27/2020 CBC w/ auto diff absolute eosinophils 159 cells /uL 15-500 normal Not Available [facility] [place] [facility] [address], [place], [address], 04/27/2020 14:40:18 04/24/20 20 04/27/2020 CBC w/ auto diff absolute basophils 41 cells /uL 0-200 normal Not Available [facility] [place] [facility] [address], [place], [address], 04/27/2020 14:40:18 04/24/20 20 04/27/2020 CBC w/ auto diff neutrophils 45.1 % normal Not Available [facility] [place] [facility] [address], [place], [address], 04/27/2020 14:40:18 04/24/20 20 04/27/2020 CBC w/ auto diff lymphocytes 42.3 % normal Not Available [facility] [place] [facility] [address], [place], [address], 04/27/2020 14:40:18 04/24/20 20 04/27/2020 CBC w/ auto diff monocytes 9.2 % normal Not Available [facility] [place] [facility] [address], [place], [address], 04/27/2020 14:40:18 04/24/20 20 04/27/2020 CBC w/ auto diff eosinophils 2.7 % normal Not Available [facility] [place] [facility] [address], [place], [address], 04/27/2020 14:40:18 04/24/20 20 04/27/2020 CBC w/ auto diff basophils 0.7 % normal Not Available [facility] [address], [place], [address], 04/27/2020 14:40:18 04/24/20 20 04/27/2020 prote in, total , urine protein, total, random ur 16 mg/dL 5-25 normal Not Available [address], [place], [address], 04/27/2020 14:40:18 04/24/20 20 04/27/2020 quant ifero n(R)- TB gold plus, 1 tube quantiferon( R)-TB gold plus, 1 tube NEGATI VE negati ve normal Negat kylie test resul t. M. tuber culos is compl ex infec tion unlik andres. Not Available [facility] [address], [place], [address], 04/27/2020 14:40:19 04/24/20 20 04/27/2020 quant ifero n(R)- TB gold plus, 1 tube nil 0.01 IU/mL normal Not Available [facility] [address], [place], [address], 04/27/2020 14:40:19 04/24/20 20 04/27/2020 quant ifero n(R)- TB gold plus, 1 tube mitogen-nil >10.00 IU/mL normal Not Available [facility] [address], [place], [address], 04/27/2020 14:40:19 04/24/20 20 04/27/2020 quant ifero n(R)- TB gold plus, 1 tube TB1-nil 0.00 IU/mL normal Not Available [facility] [place] [facility] [address], [place], [address], 04/27/2020 14:40:19 04/24/20 20 04/27/2020 quant ifero n(R)- TB gold plus, 1 tube TB2-nil 0.01 IU/mL normal The Nil tube value refle cts the backg round inter feron gamma immun e respo nse of the patie nt's blood sampl e. This value has been subtr acted from the patie nt's displ ayed TB and Mitog en resul ts. Lower than expec jenaro resul ts with the Mitog en tube preve nt false -nega tive Quant ifero n readi ngs by detec ting a patie nt with a poten tial immun e suppr essiv e condi tion and/o r subop timal pre-a nalyt ical speci men handl ing. The TB1 Antig en tube is coate d with the M. tuber culos is-sp ecifi c antig ens desig radha to elici t respo nses from TB antig en prime d CD4+ helpe r T-lym phocy gurinder. The TB2 Antig en tube is coate d with the M. tuber culos is-sp ecifi c antig ens desig radha to elici t respo nses from TB antig en prime d CD4+ helpe r and CD8+ cytot oxic T-lym phocy gurinder. For addit ional infor inessa lino refer to https ://gary bojorquez on.qu inder [employer]ID[employer]. [employer]/f aq/FA Q204 (This link is being provi ded for infor mukund guerrier/ educa abi l purpo ses only. ) Not Available [facility] [address] [place], [address], 04/27/2020 14:40:19 04/17/20 16 04/16/2016 echoc ardio gram No observ ation record ed. ecardillo [facility] [address], [place], [address], 04/18/2016 09:59:41 04/21/20 16 04/16/2016 elect yo darren am No observ ation record ed. [email or web address] [facility] [address], [place], [address], 04/27/2018 13:51:25 Result Notes None recorded. Problems Name Problem SNOMED Code Status Onset Date Resolution Date Notes Provider Name and Address Organization Details Recorded Time Renal dysplasia 514966399 Active Gautam Dougherty MD [address] [place] [address] [place], [address], [facility] 4 17:40:42 Acute upper respiratory infection 91839450 Completed 200804/25/2013 Gautam Dougherty MD [address] [place] [address] [place], [address], [facility] 3 14:16:05 Asthma 178783773 Active Gautam Dougherty MD [address] [place] [address] [place], [address], [facility] 4 17:40:42 Wheezing 66889303 Completed 200804/25/2013 Gautam Dougherty MD [address] [place] [address] [place], [address], [facility] 3 14:16:05 Viremia 9790878 Completed 04/25/2013 Gautam Dougherty MD [address] [place] [address] [place], [address], [facility] 3 14:16:05 Problem Notes None recorded. Procedures Surgical History Date Name Laterality Status Provider Name and Address Organization Details Recorded Time Appendectomy completed Gautam Dougherty MD [address] [place] [address] [place], [address], [facility] 04/25/2013 14:28:54 Imaging Results Imaging Date Name Status LastModified by Organization Details LastModified Time 04/16/2016 echocardiogram completed [facility] [address], [place], [address], 04/18/2016 09:59:41 04/16/2016 electrocardiogram completed [address] [facility] [address], [place], [address], 04/27/2018 13:51:25 Procedure Notes None recorded. Medical Equipment None Reported. Allergies No known drug allergies Medications Name Sig Start Date Stop Date Status Note LastModified by Organization Details LastModified Time amoxicillin 500 mg capsule 11/16 completed Not Available Not Available Not Available Zithromax Z-Damion 250 mg tablet Take 2 tablets (500 mg) by oral route once daily for 1 day then 1 tablet (250 mg) by oral route once daily for 4 days 2008 active Not Available Not Available Not Avai lable albuterol sulfate HFA 90 mcg/actuatio n aerosol inhaler INHALE 2 PUFFS EVERY 4 TO 6 HOURS NEEDED active Not Available Not Available No t Available Flovent HFA 110 mcg/actuatio n aerosol inhaler active Not Available Not Available Not Available Vitals Date Recorded Body height Body mass index (BMI) [Percentile] Per age and sex Body mass index (BMI) Body weight Systolic blood pressure Diastolic blood pressure Provider Name and Address Organization Details Last Updated DateTime 0 194.31 cm 15 % 20.6 kg/m2 12355.1 7 g 122 mm[Hg] 80 mm[Hg] Rula Greenfield [facility] 0 10:18:43 Date Recorded Body height Provider Name an d Address Organization Details Last Updated DateTime 04/18/2020 194.31 cm Regina Champion [facility] 04/18/2020 15:44:56 Date Recorded Body height Body weight Body mass index (BMI) Systolic blood pressure Diastolic blood pressure Provider Name and Address Organization Details Last Updated DateTime 02/21/2016 193.04 cm 20397.86 g 18.3 kg/m2 104 mm[Hg] 58 mm[Hg] Desiree David M.A. [facility] 6 15:57:59 Date Recorded Body height Body mass index (BMI) Body weight Systolic blood pressure Diastolic blood pressure Provider Name and Address Organization Details Last Updated DateTime 11/16/2017 194.31 cm 19.9 kg/m2 33253.18 g 128 mm[Hg] 76 mm[Hg] Kristy Grimes R.N. [facility] 8 13:20:54 Social History Question Answer Notes LastModified by Organizat ion Details LastModified Time Tobacco Smoking Status Never Smoker Lian Gaye chapman, [facility] 04/25/2013 14:10:35 Have There Been Any Changes To Your Family Or Social Situation? No Information not available 11/16/2017 Hard Of Hearing Or Deaf In One Or Both Ears? No Information not available 02/28/2016 Legally Blind In One Or Both Eyes? No Information not available 02/28/2016 Parent's Marital Status Information not available 11/16/2017 Home Situation Both Parents ehaire Information not available 04/25/2013 Siblings Latia (F) 11/22/1994, Gautam (M) 06/20/1996 Information not available 02/28/2016 Year In School College Graduated [employer] 2019 Information not available 11/16/2017 Parent's Name Flora Information not available 07/12/2011 Parent's Name Todd [place]de-, [facility] Information not available 07/12/2011 DSS/DCF Custody No Informati on not available 11/16/2017 What Was The Date Of Your Most Recent Tobacco Screening? 11/16/2017 Information not available 03/31/2019 Are You Passively Exposed To Smoke? No slevin Information not available 04/27/2014 How Much Tobacco Do You Smoke? No Information not available 02/28/2016 Do You Use Any Illicit Or Recreational Drugs? No Information not available 11/16/2017 Sex: Unknown Functional Status None recorded. Mental Status None recorded. Family History Relationship Description Onset Age of this Age Resolved Age Notes LastModified by Organization Details LastModified Time Maternal Grandmother Diabetes mellitus previo usly record ed as Diabet es slevin Not available 04/27/2014 16:37:39 Maternal Grandmother Problem [place] at 63 slevin Not available 04/27/2014 16:37:39 Paternal Grandfather Hypercholest erolemia previo usly record ed as Elevat ed Choles terol slevin Not available 04/27/2014 16:37:39 Paternal Grandfather Problem HTN slevin Not available 2013 16:37:39 Paternal Grandmother Problem Hodgki ns slevin Not available 04/27/2014 16:37:39 Paternal Grandmother Problem HTN slevin Not available 2013 16:37:39 Paternal Grandmother Diabetes mellitus previo usly record ed as Diabet es slevin Not available 04/27/2014 16:37:39 Notes:updated 02/16/20 Medical History Condition Response CHICKEN POX / VARICELLA HISTORY or POSIT KYLIE TITER Y PUMONARY PROBLEMS/ ASTHMA Y Immunizations Vaccine Type Date Status Note Provider Name and Address Organization Details Recorded Time Tdap 01/01/20 12 completed Not Available [facility] 09/24/2019 02:33:45 OPV 09/26/19 01 completed Douglas Amin, [facility] 12/23/2011 08:41:10 Hib, unspecified formulation 09/26/19 [facility]2011 08:41:10 DTaP, unspecified formulation 05/16/20 05 completed Douglas Amin [facility] 12/23/2011 08:41:10 OPV 05/16/20 05 [facility] 12/23/2011 08:41:10 Hib, unspecified formulation 07/06/19 99 completed Douglas Amin [facility] 12/23/2011 08:41:10 Hep B, unspecified formulation 12/17/19 07 [facility] 12/[facility]/2011 08:41:10 DTaP, unspecified formulation 09/26/19 [facility] 12/[facility]/2011 08:41:10 BCG 06/02/19 99 [facility] 12/[facility]/2011 08:41:10 MMR 04/19/20 [facility] 12/23/2011 08:41:10 DTaP, unspecified formulation 08/06/19 99 [facility] 12/23/2011 08:41:10 OPV 07/06/19 99 [facility] 12/23/2011 08:41:10 DTaP, unspecified formulation 07/06/19 99 [facility] 12/23/2011 08:41:10 Hep B, unspecified formulation 10/20/19 07 [facility] 12/23/2011 08:41:10 Hib, unspecified formulation 08/06/19 99 [facility] 12/23/2011 08:41:10 OPV 08/06/19 99 [facility] 12/23/2011 08:41:10 Hep B, unspecified formulation 03/19/20 07 completed Not Available [facility] 07/12/2011 03:16:44 MMR 03/19/20 07 completed Not Available [facility] 07/12/2011 03:19:09 meningococcal MCV4P 02/28/20 16 completed Not Available [facility] 09/24/2019 02:36:47 HPV9 02/16/20 20 cancelled patient objection Gautam Dougherty MD [address] [place] [address], [place], [address], [facility] 02/16/2020 10:38:37 Hep A, adult 02/16/20 20 completed Rula chapman [facility] 02/16/2020 10:46:58 meningococcal B, OMV 02/16/20 20 completed Rula chapman [facility] 02/16/2020 10:46:58 meningococcal B, OMV 04/18/20 20 completed Regina Champion ari [facility] 04/18/2020 15:50:28 Past Encounters Encounter ID Performer Location Encounter Start Date Encounter Closed Date Diagnosis/Indication Diagnosis SNOMED-CT Code Diagnosis ICD10 Code Diagnosis Note [id number] Gautam Dougherty MD [facility] [address] [place] [phone] 03/19/2007 15:23:17 03/19/2007 18:08:45 [id number] Gautam Dougherty MD [facility] [address] [place] [address] 4 01/14/2008 14:05:28 01/14/2008 15:12:49 [id number] Bigg Samuel MD [facility] [address] [place] [phone] 4 10/16/2008 09:39:00 10/16/2008 10:16:26 [id number] Bigg Samuel MD [facility] [address] [place] [phone] 4 10/20/2008 14:39:36 05/17/2009 01:23:50 [id number] Bigg Samuel MD [facility] [address] [place] [phone] 4 07/02/2009 13:59:55 07/02/2009 14:44:54 [id number] Gautam Dougherty MD [facility] [address] [place] [phone] 4 01/01/2012 10:42:25 01/01/2012 11:38:53 [id number] Gautam Dougherty MD [facility] [address] [place] [phone] 4 04/25/2013 14:02:57 04/25/2013 15:53:22 Well child 392227064 Renal dysplasia 520842672 Post reflux damage Asthma 602729321 [id number] Gautam Dougherty MD [facility] [address] [phone] 04/27/2014 15:57:17 04/27/2014 17:41:01 Well child 070384681 Renal dysplasia 131582331 Post reflux damage Asthma 045560346 [id number] Gautam Dougherty MD [facility] [address] [phone] 02/21/2016 15:38:31 02/21/2016 17:29:08 Well child 539511483 Z00.129 Renal dysplasia 15546527 1 Q61.4 Abnormal heart beat 3611 58543 R00.9 [id number] Bernarda Batista MD [facility] [address] [address] 02/28/2016 15:03:51 02/28/2016 15:24:42 Active or passive immunization 664004574 Z23 [id number] Gautam Dougherty MD [address] [address] 11/16/2017 13:11:14 11/16/2017 13:52:56 Adult health examination 668687899 Z00.00 Normal bod y mass index 17352345 Z68.1 Renal dysplasia 56919965 1 Q61.4 [id number] Gautam Dougherty MD [address] [address] 02/16/2020 10:09:40 02/16/2020 12:00:07 Active or passive immunization 039182489 Z23 Adult [facility] th examination 585218341 Z00.00 Normal bod y mass index 47034539 Z68.20 Renal dysplasia 98242157 1 Q61.4 [id number] Elenita Dasilva DO [facility] [address] [phone] 04/18/2020 15:43:24 04/18/2020 16:17:23 Active or passive immunization 244420882 Z23 Health Concerns Section Related Observation LastModified by Organization Detai ls LastModified Time None Recorded Concern Status LastModified by Organization Details LastModified Time None Recorded Advance Directives Directive None Recorded Payers Encounter Date Sequence Insurance Name Policy Number Policy Booth Covered Member ID Booth Member ID Guarantor Name 02/21/2016 1 [place] [id number] Flora Cespedes [id number] Todd Cespedes 02/28/2016 1 [place] [id number] Flora Cespedes [id number] Todd Cespedes 11/16/2017 1 [employer] - CHOICE (POS II) Kalpana Cespedes [id number] Todd Cespedes 02/16/2020 1 [employer] - CHOICE (POS II) Kalpana Cespedes [id number] Todd Cespedes 04/18/2020 1 [employer] (EPO) [id number] Flora Cespedes [id number] Todd Cespedes Notes Date Note Type Note Provider Name and Address Organization Details Recorded Time 02/21/2016 text/html Pt here w/older brother. I told him about needing Menactra #1 and HPV #1 and to bring parents for permission when and if he gets them. Gautam Dougherty MD [address] [place] [address], , [facility] 02/21/2016 17:28:34 02/16/2020 text/html Pt is afebrile. No ill symptoms in >10 days. No known Covid 19 exposure. Gautam Dougherty MD [address] [place] [address], , [facility] 02/16/2020 11:56:45
--- OUTSIDE RECORDS SUMMARY | 2025-01-04 11:50 | XMS_ITS | Clinical Summary ---
Author Organization [facility] Address [address] [place] [address] [place] [phone] Phone Care Team Providers Care Provisioning Specialist Name Role Phone Physician, No Pcp Primary Care Provider Unavaila ble Allergies No known active allergies Medications cyclobenzaprine (FLEXERIL) 10 mg tablet Take 1 tablet (10 mg total) by mouth 2 (two) times a day if needed for muscle spasms for up to 10 days. 20 tablet 12/25/2024 Active Encounters Date Type Department Care Team Description 12/25/2024 11:06 AM EDT - 12/25/2024 2:42 PM EDT Emergency [facility] Emergency Department [address] [place] [address] [place] [phone] Gautam Hanley DO Near syncope (Primary Dx); Palpitations; Neck pain Discharge Disposition: Home or Self Care from Last 3 Months Surgical History Surgery Date Site/Laterality Comments APPENDECTOMY INTUSSUSCEPTION REPAIR Medical History Medical History Date Comments Single kidney Social History Tobacco Use Types Packs/Day Years Used Date Smoking Tobacco: Never Smokeless Tobacco: Current Tobacco Cessation:Ready to Q uit: Not Asked; Counseling Given: Not Answered Alcohol Use Standard Drinks/Week Comments Yes 0 (1 standard drink = 0.6 oz pur e alcohol) Social Sex and Gender Information Value Date Recorded Sex Assigned at Male 12/25/2024 11:34 AM EDT Legal Sex Male 10:22 AM EDT Gender Identity Male 12/25/2024 11:34 AM EDT Sexual Orientation Straight 12/25/2024 11 :34 AM EDT Obstetrics History Last Filed Vital Signs Vital Sign Reading Time Taken Comments Blood Pressure 138/66 12/25/2024 2:30 PM EDT Pulse 59 12/25/2024 2:30 PM EDT Temperature 35.9 ??C (96.6 ??F) 12/25/2024 10:25 AM E DT Respiratory Rate 18 12/25/2024 2:30 PM EDT Oxygen Saturation 98% 12/25/2024 2:30 PM EDT Inhaled Oxygen Concentration - - Weight 102 kg (225 lb 1.4 oz) 12/25/2024 10:25 A M EDT Height 195.6 cm (6' 5 ) 12/25/2024 10:25 AM EDT Body Mass Index 26.69 12/25/2024 10:25 AM EDT Plan of Treatment Health Maintenance Due Date Last Done Comments Pneumococcal Vaccine: Pediatrics (0 to 5 Years) and At-Risk Patients (6 to 64 Years) (1 of 2 - PCV) 2018 DTaP,Tdap,and Td Vaccines (5 - Td or Tdap) 12/31/2021 01/01/2012, 05/16/2005, 09/26/2000, Additional history exists HPV Vaccines (3 - Male 3-dose series) 09/19/2024 06/27/2024, 11/10/2023 Cholesterol Screening (Lipid Panel) 12/25/2024 Depression Screening 12/25/2024 HIV Screening 12/25/2024 Hepatitis C Screening 12/25/2024 Social Influencers of Health Screening 12/25/2024 HIB Vaccines Completed 09/26/2000, 07/10, 1999 IPV Vaccines Completed 05/16/2005, 09/08, 1999, Additional history exists Hepatitis B Vaccines Completed 03/19/2007, 12/16/2006, 10/20/2006 MMR Vaccines Completed 03/19/2007, 04/19/2001 Meningococcal ACWY Vaccine Completed 02/28/2016 Hepatitis A Vaccines Aged Out 02/16/2020 No long er eligible based on patient's age to complete this topic Meningococcal B Vaccine Completed 04/18/2020, 02/15 COVID-19 Vaccine Completed 06/27/2024 Influenza Vaccine Completed 06/27/2024 RSV Immunization Patients Under 20 months Aged Out No longer eligible based on patient's age to complete this topic Varicella Vaccines Aged Out No longer eligible based on patient's age to complete this topic Procedures Procedure Name Priority Date/Time Associated Diagnosis Comments CT CERVICAL SPINE WO CONTRAST STAT 12/25/2024 2:[address] CHEST WO CONTRAST STAT 12/25/2024 2:[address] HEAD WO CONTRAST STAT 12/25/2024 2 :16 PM EDT XR CHEST 2 VIEWS STAT 12/25/2024 12:0 9 PM EDT CBC WITH AUTO DIFFERENTIAL STAT 12/25/2024 11:23 AM EDT CREATINE KINASE STAT 12/25/2024 11:23 AM EDT HEPATIC FUNCTION PANEL STAT 12/25/2024 11:23 AM EDT MAGNESIUM STAT 12/25/2024 11:23 AM EDT TROPONIN I HIGH SENSITIVITY STAT 12/25/2024 11:23 AM EDT CBC AND DIFFERENTIAL STAT 12/25/2024 11:23 AM EDT BASIC METABOLIC PANEL STAT 12/25/2024 11:23 AM EDT ECG 12-LEAD STAT 12/25/2024 10:35 AM EDT from Last 3 Months Results * CT Cervical Spine wo Contrast (12/25/2024 2:16 PM EDT) Anatomical Region Laterality Modality Spine, C-spine Computed Tomogra phy 12/25/2024 2:25 PM EDT Impressions 12/25/2024 2:27 PM EDT No acute fracture or acute traumatic subluxation of the cervical spine. Communication: Routine. -------- FINAL REPORT -------- Dictated By: Jah Fu Dictated Date: 12/25/2024 14:25 ET Assigned Physician: Jah Fu Reviewed and Electronically Signed By: Jah Fu Signed Date: 12/25/2024 14:27 ET Workstation ID: [id number] Transcribed By: Self Edit Transcribed Date: 12/25/2024 14:25 ET Narrative 12/25/2024 2:27 PM EDT HISTORY: 24 years old; Male; neck stiffness; TECHNIQUE: CT CERVICAL SPINE WO CONTRAST (ax/cor/sag reformats). COMPARISON: None. FINDINGS: POSTOPERATIVE: None. ALIGNMENT: There is straightening of the normal cervical lordosis, which may be positional or related to muscle spasm. ??No acute traumatic subluxation. CRANIOCERVICAL JUNCTION: Atlantooccipital and atlantoaxial relationships are maintained. VERTEBRAE: No acute fracture. Vertebral body heights are preserved. DISC SPACES: Normal. SOFT TISSUES: Prevertebral soft tissues are within normal limits. OTHER: None. Procedure Note Jah Fu MD - 12/25/2024 HISTORY: 24 years old; Male; neck stiffness; TECHNIQUE: CT CERVICAL SPINE WO CONTRAST (ax/cor/sag reformats). COMPARISON: None. FINDINGS: POSTOPERATIVE: None. ALIGNMENT: There is straightening of the normal cervical lordosis, whichmay be positional or related to muscle spasm. No acute traumaticsubluxation. CRANIOCERVICAL JUNCTION: Atlantooccipital and atlantoaxial relationshipsare maintained. VERTEBRAE: No acute fracture. Vertebral body heights are preserved. DISC SPACES: Normal. SOFT TISSUES: Prevertebral soft tissues are within normal limits. OTHER: None. IMPRESSION: No acute fracture or acute traumatic subluxation of the cervical spine. Communication: Routine. -------- FINAL REPORT -------- Dictated By: Jah Fu Dictated Date: 12/25/2024 14:25 ET Assigned Physician: Jah Fu Reviewed and Electronically Signed By: Jah Fu Signed Date: 12/25/2024 14:27 ET Workstation ID: [id number] Transcribed By: Self Edit Transcribed Date: 12/25/2024 14:25 ET Gautam J Dayan DO IMG CT PROCEDURES Final Resul t * CT Chest wo Contrast (12/25/2024 2:16 PM EDT) Anatomical Region Laterality Modality Body Computed Tomogra phy 12/25/2024 2:24 PM EDT Addenda Addendum by Ayden Mejias MD on 12/25/2024 3:00 PM EDT Addendum: This addendum has been added solely for the purpose of transmitting technical and professional charge information for this linked study through the [employer] system system which requires physician level privilege. -------- ADDENDUM -------- Dictated By: Ayden Mejias Dictated Date: 12/25/2024 14:59 ET Assigned Physician: Ayden Mejias Reviewed and Electronically Signed By: Ayden Mejias Signed Date: 12/25/2024 15:00 ET Workstation ID: [id number] Transcribed By: Self Edit Transcribed Date: 12/25/2024 14:59 ET Impressions 12/25/2024 2:26 PM EDT / ??CONCLUSION: 1. ??Mildly increased residual thymic tissue accounting for the appearance on chest film with no discrete nodule requiring follow-up examination. PLEASE NOTE: ??If there are any inconsistencies or lack of clarity in this interpretation or new information that would influence the interpretation rendered above, please feel free to contact me at [phone], via [employer] SECURE CHAT as Ayden Mejias or [email or web address] Communication: Routine. -------- FINAL REPORT -------- Dictated By: Ayden Mejias Dictated Date: 12/25/2024 14:24 ET Assigned Physician: Ayden Mejias Reviewed and Electronically Signed By: Ayden Mejias Signed Date: 12/25/2024 14:26 ET Workstation ID: [id number] Transcribed By: Self Edit Transcribed Date: 12/25/2024 14:24 ET Narrative 12/25/2024 2:26 PM EDT HISTORY: 24 years old; Male; abnormal chest xray; syncopal episode TECHNIQUE: CT CHEST WO CONTRAST Incidental lung nodule management and follow up recommendations are based on 2017 Fleischner guidelines. COMPARISON: None. FINDINGS: LOWER NECK: No adenopathy. MEDIASTINUM: No adenopathy or mass. There is speckled increased opacity in a triangular distribution anterior to the great vessels consistent with residual thymus tissue accounting for the appearance on the chest x-ray. There is no discrete nodule and no follow-up is recommended. There is no supraclavicular, axillary, subpectoral, anterior, middle, or posterior mediastinal lymphadenopathy. There is no prevascular nodular opacity to suggest a mediastinal process. ??There is no internal mammary lymph node enlargement. THORACIC AORTA: No aneurysm (asc<4cm; desc<3cm). HEART: Normal size (LA<4.5cm). CORONARY ARTERIES: No calcified plaque. LUNGS: No consolidation, effusion or nodules requiring evaluation. UPPER ABDOMEN: No free air or ascites in visualized abdomen. ?? The visualized upper abdominal organs are normal. MSK: No fracture or suspicious lesion. Procedure Note Ayden Mejias MD - 12/25/2024 HISTORY: 24 years old; Male; abnormal chest xray; syncopal episode TECHNIQUE: CT CHEST WO CONTRAST Incidental lung nodule management andfollow up recommendations are based on 2017 Fleischner guidelines. COMPARISON: None. FINDINGS: LOWER NECK: No adenopathy. MEDIASTINUM: No adenopathy or mass. There is speckled increased opacity in a triangular distribution anteriorto the great vessels consistent with residual thymus tissue accounting forthe appearance on the chest x-ray. There is no discrete nodule and no follow-up is recommended. There is no supraclavicular, axillary, subpectoral, anterior, middle, orposterior mediastinal lymphadenopathy. There is no prevascular nodular opacity to suggest a mediastinal process.There is no internal mammary lymph node enlargement. THORACIC AORTA: No aneurysm (asc<4cm; desc<3cm). HEART: Normal size (LA<4.5cm). CORONARY ARTERIES: No calcified plaque. LUNGS: No consolidation, effusion or nodules requiring evaluation. UPPER ABDOMEN: No free air or ascites in visualized abdomen. The visualized upper abdominal organs are normal. MSK: No fracture or suspicious lesion. IMPRESSION: / CONCLUSION: 1. Mildly increased residual thymic tissue accounting for the appearanceon chest film with no discrete nodule requiring follow-up examination. PLEASE NOTE: If there are any inconsistencies or lack of clarity in thisinterpretation or new information that would influence the interpretationrendered above, please feel free to contact me at [phone], via [email or web address] CHAT as Ayden Mejias or [email or web address] Communication: Routine. -------- FINAL REPORT -------- Dictated By: Ayden Mejias Dictated Date: 12/25/2024 14:24 ET Assigned Physician: Ayden Mejias Reviewed and Electronically Signed By: Ayden Mejias Signed Date: 12/25/2024 14:26 ET Workstation ID: [id number] Transcribed By: Self Edit Transcribed Date: 12/25/2024 14:24 ET Gautam Hanley DO IMG CT PROCEDURES Edited Resu lt - Final * CT Head wo Contrast (12/25/2024 2:16 PM EDT) Anatomical Region Laterality Modality Head and Neck Computed Tomogra phy 12/25/2024 2:24 PM EDT Impressions 12/25/2024 2:25 PM EDT No acute intracranial abnormality. Communication: Routine. -------- FINAL REPORT -------- Dictated By: Jah Fu Dictated Date: 12/25/2024 14:24 ET Assigned Physician: Jah Fu Reviewed and Electronically Signed By: Jah Fu Signed Date: 12/25/2024 14:25 ET Workstation ID: [id number] Transcribed By: Self Edit Transcribed Date: 12/25/2024 14:24 ET Narrative 12/25/2024 2:25 PM EDT HISTORY: 24 years old; Male; Dizziness, non-specific; TECHNIQUE: CT HEAD WO CONTRAST (ax/cor/sag reformats). COMPARISON: None. FINDINGS: POST-OP: None. BRAIN: No acute major vascular territory infarct. No acute intracranial hemorrhage or extra-axial fluid collection. VENTRICLES: The ventricles and sulci are normal in size and configuration. SINUSES/MASTOIDS: No paranasal sinus disease. Mastoid air cells are clear. MSK: No acute calvarial abnormality. OTHER: None. Procedure Note Jah Fu MD - 12/25/2024 HISTORY: 24 years old; Male; Dizziness, non-specific; TECHNIQUE: CT HEAD WO CONTRAST (ax/cor/sag reformats). COMPARISON: None. FINDINGS: POST-OP: None. BRAIN: No acute major vascular territory infarct. No acute intracranialhemorrhage or extra-axial fluid collection. VENTRICLES: The ventricles and sulci are normal in size andconfiguration. SINUSES/MASTOIDS: No paranasal sinus disease. Mastoid air cells areclear. MSK: No acute calvarial abnormality. OTHER: None. IMPRESSION: No acute intracranial abnormality. Communication: Routine. -------- FINAL REPORT -------- Dictated By: Jah Fu Dictated Date: 12/25/2024 14:24 ET Assigned Physician: Jah Fu Reviewed and Electronically Signed By: Jah Fu Signed Date: 12/25/2024 14:25 ET Workstation ID: [id number] Transcribed By: Self Edit Transcribed Date: 12/25/2024 14:24 ET Gautam Hanley DO IMG CT PROCEDURES Final Resul t * XR Chest 2 Views (12/25/2024 12:09 PM EDT) Anatomical Region Laterality Modality Body Radiographic Belinda ging 12/25/2024 12:1 2 PM EDT Impressions 12/25/2024 12:13 PM EDT 1. Clear lungs. 2. Abnormal contour of the upper left heart border which may reflect an enlarged main and/or left pulmonary artery which can be seen in the setting of pulmonary arterial hypertension or pulmonic stenosis. This could be further evaluated with chest CTA as warranted. -------- FINAL REPORT -------- Dictated By: Lan Helm Dictated Date: 12/25/2024 12:12 ET Assigned Physician: Lan Helm Reviewed and Electronically Signed By: Lan Helm Signed Date: 12/25/2024 12:13 ET Workstation ID: [id number] Transcribed By: Self Edit Transcribed Date: 12/25/2024 12:12 ET Narrative 12/25/2024 12:13 PM EDT HISTORY: 24 years old; Male; near syncope; TECHNIQUE: XR CHEST 2 VIEWS. COMPARISON: None. FINDINGS: LUNGS: No mass, consolidation, pleural effusion, or pneumothorax. MEDIASTINUM: Abnormal contour of the upper left heart border which may reflect an enlarged main pulmonary artery. The right pulmonary artery appears normal in size. MSK: No acute displaced fracture. OTHER: None. Procedure Note Lan Helm MD - 12/25/2024 HISTORY: 24 years old; Male; near syncope; TECHNIQUE: XR CHEST 2 VIEWS. COMPARISON: None. FINDINGS: LUNGS: No mass, consolidation, pleural effusion, or pneumothorax. MEDIASTINUM: Abnormal contour of the upper left heart border which mayreflect an enlarged main pulmonary artery. The right pulmonary arteryappears normal in size. MSK: No acute displaced fracture. OTHER: None. IMPRESSION: 1. Clear lungs. 2. Abnormal contour of the upper left heart border which may reflect anenlarged main and/or left pulmonary artery which can be seen in thesetting of pulmonary arterial hypertension or pulmonic stenosis. Thiscould be further evaluated with chest CTA as warranted. -------- FINAL REPORT -------- Dictated By: Lan Helm Dictated Date: 12/25/2024 12:12 ET Assigned Physician: Lan Helm Reviewed and Electronically Signed By: Lan Helm Signed Date: 12/25/2024 12:13 ET Workstation ID: [id number] Transcribed By: Self Edit Transcribed Date: 12/25/2024 12:12 ET us Gautam Hanley DO IMG XR PROCEDURES Final Resul t * Troponin I High Sensitivity (12/25/2024 11:23 AM EDT) High Sensitivity Troponin I <2 <20 ng/L LAB CHEMISTRY METHOD 12/25/2024 12:59 PM EDT [facility] Blood Venous blood specimen / Unknown Venipuncture / Unknown 12/25/2024 11:23 AM EDT 12/25/2024 12:13 PM EDT Narrative [facility] - 12/25/2024 12:59 PM EDT RESULTS INTERPRETATION: NORMAL RANGE ??Female: <14 ng/L ??Male: ?? <20 ng/L ??Unknown:<14 ng/L ABNORMAL ??Female: 14 to 100 ng/L ??Male : ??20 to 100 ng/L ??Unknown:14 to 100 ng/L CRITICAL: > 100 ng/L ACUTE CORONARY SYNDROME (ACS): ??Low Risk: ? 0 h <14 ng/L for Females/Unknown ? 0 h <20 ng/L for Males ? 1 h delta is <5 ng/L ??Moderate Risk: ? 0 h 14 to 100 ng/L for Females/Unknown ? 0 h 20 to 100 ng/L for Males AND ? 1 h delta >/= 5 ng/L OR ? Persistent clinical concerns and/or HEART score >/= 4 ??High Risk: ? > 100 ng/L OR 1 h delta >/= 15 ng/L NOTE: DELTA VALUES ARE NOT APPLICABLE IF SYMPTOMS BEGAN MORE THAN 12 HOURS PRE-ARRIVAL. ALKALINE PHOSPHATASE LEVELS ABOVE 400 U/L MAY CAUSE FALSE POSITIVE RESULTS. us Gautam Hanley DO LAB BLOOD ORDERABLES Final Re sult [facility] [address] [facility] [place] [address], * (ABNORMAL) CBC auto differential (12/25/2024 11:23 AM EDT) [facility] WBC 7.5 4.3 - 10.5 K/mcL LAB HEMETOLOGY METHOD 12/25/2024 12:26 PM EDT [facility] RBC 5.89(H) 4.10 - 5.70 M/mcL LAB HEMETOLOGY METHOD 12/25/2024 12:26 PM EDT [facility] Hemoglobin 17.0 13.5 - 17.0 g/dL LAB HEMETOLOGY METHOD 12/25/2024 12:26 PM EDT [facility] Hematocrit 50.3 40.0 - 51.0 % LAB HEMETOLOGY METHOD 12/25/2024 12:26 PM EDT [facility] MCV 85.5 80.0 - 96.0 FL LAB HEMETOLOGY METHOD 12/25/2024 12:26 PM EDT [facility] MCHC 33.9 32.0 - 36.0 g/dL LAB HEMETOLOGY METHOD 12/25/2024 12:26 PM EDT [facility] RDW 13.4 11.5 - 14.5 % LAB HEMETOLOGY METHOD 12/25/2024 12:26 PM EDT [facility] Platelets 229 150 - 400 K/mcL LAB HEMETOLOGY METHOD 12/25/2024 12:26 PM EDT [facility] MPV 8.2 7.4 - 10.4 FL LAB HEMETOLOGY METHOD 12/25/2024 12:26 PM EDT [facility] Neutrophils Relative 67.4 41.0 - 73.0 % LAB HEMETOLOGY METHOD 12/25/2024 12:26 PM EDT [facility] Lymphocytes Relative 23.1 16.0 - 43.0 % LAB HEMETOLOGY METHOD 12/25/2024 12:26 PM EDT [facility] Monocytes Relative 8.0 3.0 - 10.0 % LAB HEMETOLOGY METHOD 12/25/2024 12:26 PM EDT [facility] Eosinophils Relative 1.1 0.0 - 6.0 % LAB HEMETOLOGY METHOD 12/25/2024 12:26 PM EDT [facility] Basophils Relative 0.4 0.0 - 3.0 % LAB HEMETOLOGY METHOD 12/25/2024 12:26 PM EDT [facility] Neutrophils Absolute 5.00 1.70 - 7.60 K/mcL LAB HEMETOLOGY METHOD 12/25/2024 12:26 PM EDT [facility] Lymphocytes Absolute 1.70 0.69 - 4.50 K/mcL LAB HEMETOLOGY METHOD 12/25/2024 12:26 PM EDT [facility] Monocytes Absolute 0.60 0.13 - 1.00 K/mcL LAB HEMETOLOGY METHOD 12/25/2024 12:26 PM EDT [facility] Eosinophils Absolute 0.10 0.00 - 0.60 K/mcL LAB HEMETOLOGY METHOD 12/25/2024 12:26 PM EDT [facility] Basophils Absolute 0.00 0.00 - 0.30 K/mcL LAB HEMETOLOGY METHOD 12/25/2024 12:26 PM EDT [facility] MCH 28.9 27.0 - 34.0 pcg LAB HEMETOLOGY METHOD 12/25/2024 12:26 PM EDT [facility] NRBC 0.4(H) 0.0 - 0.0 % LAB HEMETOLOGY METHOD 12/25/2024 12:26 PM EDT [facility] NRBC Absolute 0.03(H) 0.00 - 0.00 K/mcL LAB HEMETOLOGY METHOD 12/25/2024 12:26 PM EDT [facility] Blood Venous blood specimen / Unknown Venipuncture / Unknown 12/25/2024 11:23 AM EDT 12/25/2024 12:14 PM EDT us Gautam Hanley DO LAB BLOOD ORDERABLES Final Re sult [facility] [address] [place] [address], * Magnesium (12/25/2024 11:23 AM EDT) Magnesium 1.9 1.9 - 2.7 mg/dL LAB CHEMISTRY METHOD 12/25/2024 12:54 PM EDT [facility] Blood Venous blood specimen / Unknown Venipuncture / Unknown 12/25/2024 11:23 AM EDT 12/25/2024 12:14 PM EDT Gautam Hanley LAB BLOOD ORDERABLES Final Re sult [facility] [address] [place] [address] [place] [id number], [place] [phone] * Creatine kinase (12/25/2024 11:23 AM EDT) Pathologist [facility] Total CK 93 30 - 223 unit/L LAB CHEMISTRY METHOD 12/25/2024 12:51 PM EDT [facility] Blood Venous blood specimen / Unknown Venipuncture / Unknown 12/25/2024 11:23 AM EDT 12/25/2024 12:13 PM EDT Gautam Hanley DO LAB BLOOD ORDERABLES Final Re sult Performing Organization Address City/[facility]/ZIP Co de Phone Number [facility] [address] [place] [address] [place] [id number], [place] [phone] * (ABNORMAL) Hepatic Function Panel (12/25/2024 11:23 AM EDT) Total Protein 7.3 6.4 - 8.2 g/dL LAB CHEMISTRY METHOD 12/25/2024 12:54 PM EDT [facility] Albumin 4.4 3.5 - 5.2 g/dL LAB CHEMISTRY METHOD 12/25/2024 12:54 PM EDT [facility] Total Bilirubin 1.1(H) 0.2 - 1.0 mg/dL LAB CHEMISTRY METHOD 12/25/2024 12:54 PM EDT [facility] Bilirubin, Direct 0.1 0.0 - 0.2 mg/dL LAB CHEMISTRY METHOD 12/25/2024 12:54 PM EDT [facility] Bilirubin, Indirect 1.0 0.1 - 1.0 mg/dL LAB CHEMISTRY METHOD 12/25/2024 12:54 PM EDT [facility] ALT (SGPT) 15 7 - 52 unit/L LAB CHEMISTRY METHOD 12/25/2024 12:54 PM EDT [facility] AST (SGOT) 15 15 - 37 unit/L LAB CHEMISTRY METHOD 12/25/2024 12:54 PM EDT [facility] Alkaline Phosphatase 62 34 - 104 unit/L LAB CHEMISTRY METHOD 12/25/2024 12:54 PM EDT [facility] Blood Venous blood specimen / Unknown Venipuncture / Unknown 12/25/2024 11:23 AM EDT 12/25/2024 12:14 PM EDT Gautam Hanley DO LAB BLOOD ORDERABLES Final Re sult [facility] [address] [facility] [place] [id number], * (ABNORMAL) Basic Metabolic Panel (BMP) (12/25/2024 11:23 AM EDT) Sodium 139 136 - 145 mmol/L LAB CHEMISTRY METHOD 12/25/2024 12:54 PM EDT [facility] Potassium 4.2 3.5 - 5.1 mmol/L LAB CHEMISTRY METHOD 12/25/2024 12:54 PM EDT [facility] Chloride 103 98 - 107 mmol/L LAB CHEMISTRY METHOD 12/25/2024 12:54 PM EDT [facility] CO2 28 21 - 32 mmol/L LAB CHEMISTRY METHOD 12/25/2024 12:54 PM EDT [facility] Anion Gap 8 5 - 17 LAB CHEMISTRY METHOD 12/25/2024 12:54 PM EDT [facility] Glucose 92 74 - 99 mg/dL LAB CHEMISTRY METHOD 12/25/2024 12:54 PM EDT [facility] BUN 16 8 - 25 mg/dL LAB CHEMISTRY METHOD 12/25/2024 12:54 PM EDT [facility] Creatinine 1.20(H) 0.72 - 1.18 mg/dL LAB CHEMISTRY METHOD 12/25/2024 12:54 PM EDT [facility] eGFR 86 >=60 mL/min/1. 73m2 LAB CHEMISTRY METHOD 12/25/2024 12:54 PM EDT [facility] Comment:Calculation based on the??Chronic Kidney Disease Epidemiology Collaboration (CKD-EPI) equation refit??without adjustment for race. BUN/Creatinine Ratio 13.3 12.0 - 20.0 LAB CHEMISTRY METHOD 12/25/2024 12:54 PM EDT [facility] Calcium 9.7 8.6 - 10.3 mg/dL LAB CHEMISTRY METHOD 12/25/2024 12:54 PM EDT [facility] Blood Venous blood specimen / Unknown Venipuncture / Unknown 12/25/2024 11:23 AM EDT 12/25/2024 12:14 PM EDT us Gautam Hanley DO LAB BLOOD ORDERABLES Final Re sult [facility] [address] [place] [address] [place] [id number], [place] [phone] * ECG 12 lead (12/25/2024 10:35 AM EDT) Ventricular Rate ECG 82 BPM GEMUSE Atrial Rate 82 BPM GEMUSE P-R Interval 162 ms GEMUSE QRS Duration 100 ms GEMUSE Q-T Interval 342 ms GEMUSE QTc 399 ms GEMUSE P Wave [place] 60 degrees GEMUSE R [place] 44 degrees GEMUSE T [place] -133 degrees GEMUSE ECG Interpretation Normal sinus rhythm Septal infarct , age undetermined ST and T wave abnormality, consider inferolateral ischemia Abnormal ECG No previous ECGs available Confirmed by YESSENIA COLEY MD ([id number]) on 12/25/2024 1:50:34 PM GEMUSE 12/25/2024 10:3 5 AM EDT 12/25/2024 1:50 PM EDT us Alfredo Alcantar MD ECG ORDERABLES Final Resul t GEMUSE from Last [address] [place] [place] [address] ([facility]) Care Teams Provisioning Specialist Relationship Specialty Start Date End Date Physician, No Pcp PCP - General 12/25/24
--- OUTSIDE RECORDS SUMMARY | 2025-01-04 11:50 | XMS_ITS | Clinical Summary ---
Author Organization [facility] Address [address] [place] [address] Care Team Providers Care Psychology Department Chair Name Role Phone Ting George DO Primary Care Provider [phone] Ting George DO Unavailable [phone] Allergies No known active allergies Medications albuterol (PROVENTIL HFA; VENTOLIN HFA) 108 (90 Base) MCG/ACT inhalerIndication s:Mild intermittent asthma without complication Inhale 2 puffs 4 times daily (every 6 hours) as needed for wheezing or shortness of breath. 1 each 3 2 Active famotidine (PEPCID) 20 MG tablet Take 1 tablet (20 mg total) by mouth 2 (two) times a day. 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 Wheezing 10/16/2008 11/10/2023 Resolved Problems Problem Noted Date Diagnosed Date Resolved Date Routine general medical exam ination at a health care facility 09/04/2022 11/10/2023 08/03/2024 Acute upper respiratory infection 10/20/2008 024 12/14/2023 Immunizations Immunization Administration Dates Next Due BCG 1999 DTaP, Unspecified 05/16/2005,09/26/2000,08/06/19 99,1999 HPV Nonavalent 11/10/2023 Hep B, Unspecified 03/19/2007,12/16/2006, 007 Hepatitis A 02/16/2020 Hib 09/26/2000,1999,1999 MMR 03/19/2007,04/19/2001 Meningococcal MCV4P (Menactra) 02/28/2016 Meningococcal Serogroup B 2-Dose 04/18/2020,02/05 OPV 05/16/2005,09/26/2000,1999 ,1999 Tdap 01/01/2012 Family History Medical History Relation Name Comments No Known Problems Father Relation Name Status Comments Father Alive Mother Alive Social History Tobacco Use Types Packs/Day Years Used Date Smoking Tobacco: Never Smokeless Tobacco: Never Comments:Smokes rarely Alcohol Use Standard Drinks/Week Comments Yes 0 (1 standard drink = 0.6 oz pur e alcohol) socially PHQ-2 Answer Date Recorded PHQ-2 Total Score 0 02/14/2022 Sex and Gender Information Value Date Recorded Sex Assigned at Not on file Legal Sex Male 4:52 PM EDT Gender Identity Not on file Sexual Orientation Not on file Last Filed Vital Signs Vital Sign Reading Time Taken Comments Blood Pressure 137/90 11/10/2023 11:01 AM EST Pulse 62 11/10/2023 11:01 AM EST Temperature 37 ??C (98.6 ??F) 02/14/2022 3:12 PM EDT Respiratory Rate 18 02/29/2020 2:02 PM EDT Oxygen Saturation 98% 11/10/2023 11:01 AM EST Inhaled Oxygen Concentration - - Weight 94.3 kg (208 lb) 11/10/2023 11:01 AM EST Height 195.6 cm (6' 5 ) 11/10/2023 11:01 AM EST Body Mass Index 24.67 11/10/2023 11:01 AM EST Plan of Treatment Health Maintenance Due Date Last Done Comments Hepatitis C Virus Screening 1999 Pneumococcal Vaccine: Pediat lara (0-5 Years) and At-Risk Patients (6 to 49 Years) (1 of 2 - PCV) 2018 DTaP/Tdap/Td Vaccines (5 - T d or Tdap) 12/31/2021 01/01/2012, 05/16/2005, 09/26/2000, Additional history exists HPV Vaccines (2 - Male 3-dos e series) 12/08/2023 11/10/2023 Influenza Vaccine 04/07/2024 COVID-19 Vaccine (2023-2 5 season) 2024 Physical 02/14/2025 02/14/2022 Hepatitis B Vaccines Completed 03/19/2007, 12/16/2006, 10/20/2006 HIV Screening Completed 11/13/2023 Procedures Procedure Name Priority Date/Time Associated Diagnosis Comments HIV 1/2 AG/AB CMIA REFLEX TO CONFIRMATION Routine 11/13/2023 3:03 PM EST Screen for STD (sexually transmitted disease) from Last 3 Months or Most Recently Relevant to Health Maintenance Results * HIV 1/2 Ag/Ab CMIA Reflex to Confirmation (11/13/2023 3:03 PM EST) HIV Ag/Ab, 4th Gen NON-REACT KYLIE NON-REACT KYLIE [facility] Comment: HIV-1 antigen and HIV-1/HIV-2 antibodies were not detected. There is no laboratory evidence of HIV infection. PLEASE NOTE: This information has been disclosed to you from records whose confidentiality may be protected by state law. ??If your state requires such protection, then the state law prohibits you from making any further disclosure of the information without the specific written consent of the person to whom it pertains, or as otherwise permitted by law. A general authorization for the release of medical or other information is NOT sufficient for this purpose. ?? For additional information please refer to http://education.Bubble & Balm.Emergent Views/faq/ISN838 (This link is being provided for informational/ educational purposes only.) The performance of this assay has not been clinically validated in patients less than 2 years old. Blood specimen (specimen) Blood specimen / Unknown 11/13/2023 3:03 PM EST 11/13/2023 3:04 PM EST Narrative [facility] - 11/14/2023 2:12 PM EST FASTING:NO FASTING: NO Ting George DO LAB BLOOD ORDERABLES Final Result [facility] [address] [place] [address] from Last 3 Months or Most Recently Relevant to Health Maintenance Insurance [facility] - EMPLOYEE PLAN POWERED BY [employer] Care Teams Psychology Department Chair Relationship Specialty Start Date End Date Ting George DO [address], [place] [address] PCP - General Family Medicine 01/22/24 Ting George DO [address], [place] [id number] PCP - [facility] Employee Attributed 02/06/24
== END 2025-01-04 11:19 | disposition home or self-care (01) ==
LOC: HO.HCS 10:29
PROVIDERS: Visit Provider Internal Medicine Cardiovascular Disease
DX: R00.2 Palpitations (principal); R42 Dizziness and giddiness; R94.31 Abnormal electrocardiogram [ECG] [EKG]
CPT/HCPCS: 93010; 99213

== ENCOUNTER → 2025-01-04 10:28 | Outpatient (BNVA) | payer BC, SELFPAY | PROVIDERS: Visit Provider Internal Medicine Cardiovascular Disease | DX: R00.2 Palpitations (principal); R42 Dizziness and giddiness | CPT/HCPCS: 93005 ==

== ENCOUNTER → 2025-01-05 13:54 | Outpatient (REF) | payer BC, SELFPAY ==
--- NOTE | 2025-01-05 13:59 | CA_ITS ---
Transthoracic Echocardiogram Patient (Last, First, Middle): Duncan Cespedes, Gender: Male Date of : 2000 Age: 24 Procedure Date: 01/05/2025 Procedure Type: Transthoracic Echocardiogram Location: OP Height: 195.58 cm Weight: 102.06 kg BSA: 2.35 m2 Heart Rate: bpm BP: 130 / 88 mmHg Hazmat Cdl A Driver: TO Referring MD: Channing Souza MD Safety Technician: Channing Souza MD Symptoms: R42 - Dizziness and giddiness Study Quality: Adequate Conclusions: - Essentially normal study. Findings Left Ventricle Normal left ventricular size, thickness, systolic function, and wall motion. The visually estimated ejection fraction is between 55-60%. Diastolic function is normal for age. Right Ventricle Normal right ventricular cavity size and systolic function. Atria The left atrium is normal in size. The right atrium is normal in size. Aortic Valve Normal aortic valve structure and function. There is no aortic valve stenosis. There is no aortic valve regurgitation. Mitral Valve Normal mitral valve structure and function. There is no mitral valve regurgitation. There is no mitral valve stenosis. Pulmonic Valve The pulmonic valve is normal. There is trace pulmonic valve regurgitation. Tricuspid Valve Normal tricuspid valve structure. There is no tricuspid valve regurgitation. Tricuspid regurgitation envelope is inadequate for calculation of right ventricular systolic pressure. Normal right atrial pressure. Great Vessels All visible segments of the aorta are normal in size. The visualized portions of the pulmonary artery and branches are normal. Venous The inferior vena cava is normal in size and collapses greater than 50% with inspiration. Pericardium/Pleural There is no evidence of pericardial effusion. Prior Study Comparison No prior study available for comparison. Measurements 2D Linear Measurements IVSd: 0.91 0.6-0.9/0.6-1.0 cm LVIDd: 5.23 3.9-5.3/4.2-5.9 cm LVIDd Index: 2.23 2.4-3.2/2.2-3.1 cm/m2 LVIDs: 3.11 2.0-3.6 cm LVPWd: 0.73 0.7-1.1 cm LA Diam: 3.10 2.7-3.8/3.0-4.0 cm LAIDs Index: 1.32 1.5-2.3 cm/m2 LV Mass: 188.88 67-162/88-224 g LV Mass Index: 80.37 43-95/49-115 g/m2 LVOT Diam: 2.50 3.0+(-)1.3 cm 2D Systolic Function EF 4C: 60.20 >55% EF 2C: 57.50 >55% EF BiP: 59.20 >55% Mitral Valve MV Pk E: 0.81 MV PK A: 0.48 MV Decel Time: 172.00 E/A: 1.70 E'Lateral: 9.68 E'Medial: 8.05 E/E' Med: 10.00 E/E' Lat: 8.30 PHT: 50.00 MVA PHT: 4.40 Decel Pepin: 4.69 Aortic Valve AoV Pk Montrell: 1.06 AoV Mn Montrell: 0.68 AoV VTI: 0.20 AoV Pk Grad: 4.00 Aov Mn Grad: 2.00 YEVGENIY Cont.VTI: 3.78 LVOT LVOT Pk Montrell: 0.87 LVOT Mn Montrell: 0.56 LVOT VTI: 0.15 LVOT Pk Grad: 3.00 LVOT Mn Grad: 2.00 LVOT Diam: 2.50 LVOT Area: 4.91 Diastolic Function MV Pk E: 0.81 MV Pk A: 0.48 E/A: 1.70 E'Medial: 8.05 E/E' Med: 10.00 E' Laterial: 9.68 E/E' Lat: 8.30 Right Ventricle TAPSE (mm): 21.20 TVS' Montrell: 13.50 Tricuspid Valve RA Press: 3.00 Great Vessels Aorta Sinus of Valsalva: 3.40 2.0-3.5 cm Ao Asc: 3.00 2.1-3.4 cm Updated in Other Vendor System with Status of Final Channing Souza MD electronically signed on 01/06/2025 4:06:57 PM with status of Final
--- OUTSIDE RECORDS SUMMARY | 2025-01-05 16:07 | XMS_ITS | Clinical Summary ---
Author Organization [facility] Address [address] [place] [address] [place] [phone] Phone Care Team Providers Care Psychology Clinician Name Role Phone Physician, No Pcp Primary [...] EDT - 12/25/2024 2:42 PM EDT [facility] [address] [place] [address] [place] Starkey [phone] Gautam Hanley DO Near syncope (Primary Dx); [...] Signed Date: 12/25/2024 14:27 ET Workstation ID: [id number] Transcribed By: Self Edit Transcribed Date: 12/25/2024 [...] Signed Date: 12/25/2024 14:27 ET Workstation ID: [id number] Transcribed By: Self Edit Transcribed Date: 12/25/2024 [...] information for this linked study through the [employer] system system which requires physician level privilege. -------- ADDENDUM -------- Dictated By: Ayden Mejias Dictated Date: 12/25/2024 14:59 ET Assigned Physician: Ayden Mejias Reviewed and Electronically Signed By: Ayden Mejias Signed Date: 12/25/2024 15:00 ET Workstation ID: [id number] Transcribed By: Self Edit Transcribed Date: 12/25/2024 [...] please feel free to contact me at [phone], via [employer] CHAT as Ayden Mejias or [email or web address] Communication: Routine. -------- FINAL REPORT -------- Dictated By: Ayden Mejias Dictated Date: 12/25/2024 14:24 ET Assigned Physician: Ayden Mejias Reviewed and Electronically Signed By: Ayden Mejias Signed Date: 12/25/2024 14:26 ET Workstation ID: [id number] Transcribed By: Self Edit Transcribed Date: 12/25/2024 [...] please feel free to contact me at [phone], via [employer] CHAT as Ayden Mejias or [email or web address] Communication: Routine. -------- FINAL REPORT -------- Dictated By: Ayden Mejias Dictated Date: 12/25/2024 14:24 ET Assigned Physician: Ayden Mejias Reviewed and Electronically Signed By: Ayden Mejias Signed Date: 12/25/2024 14:26 ET Workstation ID: [id number] Transcribed By: Self Edit Transcribed Date: 12/25/2024 [...] Signed Date: 12/25/2024 14:25 ET Workstation ID: [id number] Transcribed By: Self Edit Transcribed Date: 12/25/2024 [...] Signed Date: 12/25/2024 14:25 ET Workstation ID: [id number] Transcribed By: Self Edit Transcribed Date: 12/25/2024 [...] Signed Date: 12/25/2024 12:13 ET Workstation ID: [id number] Transcribed By: Self Edit Transcribed Date: 12/25/2024 [...] Signed Date: 12/25/2024 12:13 ET Workstation ID: [id number] Transcribed By: Self Edit Transcribed Date: 12/25/2024 12:12 ET us Gautam Hanley DO IMG XR PROCEDURES Final Resul t * Troponin I High Sensitivity (12/25/2024 11:23 AM EDT) High Sensitivity Troponin I <2 <20 ng/L LAB CHEMISTRY METHOD 12/25/2024 12:59 PM EDT [facility] Blood Venous blood specimen / Unknown [...] [facility] [address] [facility] [place] [id number], * (ABNORMAL) CBC auto differential (12/25/2024 11:23 AM EDT) [facility] WBC 7.5 4.3 - 10.5 K/mcL LAB [...] [facility] [address] [place] [address], * Magnesium (12/25/2024 11:23 AM EDT) Magnesium 1.9 1.9 - 2.7 mg/dL LAB CHEMISTRY METHOD 12/25/2024 12:54 PM EDT [facility] Blood Venous blood specimen / Unknown Venipuncture / Unknown 12/25/2024 11:23 AM EDT 12/25/2024 12:14 PM EDT Gautam Hanley LAB BLOOD ORDERABLES Final Re sult [facility] [address] [place] [address] [place] [address], [place] [phone] * Creatine kinase (12/25/2024 11:23 AM EDT) Pathologist [facility] Total CK 93 30 - 223 unit/L LAB CHEMISTRY METHOD 12/25/2024 12:51 PM EDT [facility] Blood Venous blood specimen / Unknown Venipuncture / Unknown 12/25/2024 11:23 AM EDT 12/25/2024 12:13 PM EDT Gautam Hanley DO LAB BLOOD ORDERABLES Final Re sult Performing Organization Address City/[facility]/ZIP Co de Phone Number [facility] [address] [place] [address] [place] [address], [place] [phone] * (ABNORMAL) Hepatic Function Panel (12/25/2024 11:23 [...] [facility] [address] [facility] [place] [address], * (ABNORMAL) Basic Metabolic Panel (BMP) (12/25/2024 [...] [facility] [address] [place] [address] [place] [address], [place] [phone] * ECG 12 lead (12/25/2024 10:35 AM EDT) Ventricular Rate ECG 82 BPM GEMUSE Atrial Rate 82 BPM GEMUSE P-R Interval 162 ms GEMUSE QRS Duration 100 ms GEMUSE Q-T Interval 342 ms GEMUSE QTc 399 ms GEMUSE P Wave [place] 60 degrees GEMUSE R [place] 44 degrees GEMUSE T [place] -133 degrees GEMUSE ECG Interpretation Normal sinus rhythm Septal infarct , age undetermined ST and T wave abnormality, consider inferolateral ischemia Abnormal ECG No previous ECGs available Confirmed by YESSENIA COLEY MD ([id number]) on 12/25/2024 1:50:34 PM GEMUSE 12/25/2024 10:3 5 AM EDT 12/25/2024 1:50 PM EDT us Alfredo Alcantar MD ECG ORDERABLES Final Resul t GEMUSE from Last [address] [place] [address] [place] [address] ([facility]) Care Teams Psychology Clinician Relationship Specialty Start Date End Date Physician, No Pcp PCP - General 12/25/24
--- OUTSIDE RECORDS SUMMARY | 2025-01-05 16:07 | XMS_ITS | Clinical Summary ---
Author Organization Replaced by [facility] Address [address] [place] [address] Care Team Providers Care Manager Housekeeping Name Role Phone Gautam Dougherty MD Primary Care Provider [phone] Allergies No known active allergies Medications No [...] topic Insurance [employer] OPEN [employer] Care Teams Manager Housekeeping Relationship Specialty Start Date End Date Gautam Dougherty MD [address] [place] [address] PCP - General Pediatrics 07/30/19
--- OUTSIDE RECORDS SUMMARY | 2025-01-05 16:08 | XMS_ITS | Clinical Summary ---
Author Organization [facility] Address [address] [place] [address] Care Team Providers Care [facility] Name Role Phone Ting George DO Primary Care Provider [phone] Ting George DO Unavailable [phone] Allergies No known active allergies Medications albuterol [...] Ag/Ab, 4th Gen NON-REACT KYLIE NON-REACT KYLIE [facility] Comment: HIV-1 antigen and HIV-1/HIV-2 antibodies were [...] ?? For additional information please refer to http://education.LEPOW.The Beer X-Change/faq/YTF650 (This link is being provided for informational/ educational purposes only.) The performance of this assay has not been clinically validated in patients less than 2 years old. Blood specimen (specimen) Blood specimen / Unknown 11/13/2023 3:03 PM EST 11/13/2023 3:04 PM EST Narrative [facility] - 11/14/2023 2:12 PM EST FASTING:NO FASTING: NO Ting George DO LAB BLOOD ORDERABLES Final Result [facility] [address] [place] [address] from Last 3 Months or Most Recently Relevant to Health Maintenance Insurance [facility] - EMPLOYEE PLAN P[employer]ED [employer] Care Teams [facility] Relationship Specialty Start Date End Date Ting George DO [address], [place] [phone] PCP - General Family Medicine 01/22/24 Ting George DO [address], [place] [phone] PCP - [facility] Employee Attributed 02/06/24
--- OUTSIDE RECORDS SUMMARY | 2025-01-05 16:08 | XMS_ITS | Data Portability ---
Author Organization [place] - [facility], [facility] Address [address] [place] [address] Assessment Encounter Date Assessment Date Assessment LastModified [...] [facility], [address], [address], [place], [address], 0 14:40:18 lipid panel, serum 2019 020 [facility], [address], [address], [place], [address], 0 14:40:16 BMP, serum or plasma 2019 020 [facility], [address], [address], [place], [address], 0 14:40:17 protein, total, urine 2019 020 [facility], [address], [address], [place], [address], 0 14:40:18 CT + NG DNA, PCR, [...] 17:00:33 urinalysis , complete 2015 016 DBA_PATCH_ [id number] [facility] (Centralized Electronic Ordering - All Locations), Patient Can Go To The Location Of Their Choice, [id number] 6 04:08:56 protein/cr eatinine, ratio, urine 2015 016 [email or web address] [facility] (Centralized Electronic Ordering - All Locations), Patient Can Go To The Location Of Their Choice, [address] 7 14:19:50 creatinine , blood 2015 016 DBA_PATCH_ [id number] [facility] (Centralized Electronic Ordering - All Locations), Patient Can Go To The Location Of Their Choice, [address] 6 04:08:54 bun (blood urea nitrogen), serum or plasma 2015 016 DBA_PATCH_ [id number] [facility] (Centralized Electronic Ordering - All Locations), Patient Can Go To The Location Of Their Choice, [address] 6 04:09:03 Referral nephrologi referral 2019 020 kt Helms MD, [address] [facility], [facility] [address], [place], [address], 0 12:20:23 pediatric cardiologi referral 2015 016 DBA_PATCH_ [id number] Not available 6 04:08:57 Procedures None recorded. Surgeries None recorded. Imaging None recorded. Medication Orders None recorded. Patient TargetsNo targets recorded. Patient Instructions Encounter Date Encounter Id Patient Instructions Last Modified By Organization Details Last Modified Time 02/21/2016 [id number] patient health questionnaire modified for adolescents* [id number] Not available 08/23/2016 04:08:56 [id number] program - 1 hour of exercise [id number] Not available 08/23/2016 04:09:04 11/16/2017 [id number] program - 5 fruits & veggies jyunis Not available 11/16/2017 13:37:46 5210 program - 1 hour of exercise jyunis Not available 11/16/2017 13:37:46 patient health questionnaire depression assessment* DANK Not available 11/16/2017 14:01:25 immunization: wh at you need to know jyunis Not available 11/16/2017 13:37:46 02/16/2020 [id number] program - 5 fruits & veggies jyunis Not available 02/16/2020 10:38:37 5210 program - 1 hour of exercise jyunis Not available 02/16/2020 10:38:36 patient health questionnaire depression assessment* jyunis Not available 02/16/2020 10:38:37 immunization: wh at you need to know jyunis Not available 02/16/2020 10:38:37 Reason for Referral Electrical Controls Technician Refer ral for Abnormal heart beat Referring Physician: Gautam Dougherty, Pediatric Medicine, Encounter Date: 02/21/2016 Workers Compensation Claims Assistant 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 Referring Physician: [...] [facility], [facility] Chest nut [facility] [place] [address] Chana england MD, PhD, Medic al [facility] Not Available [facility] (Centralized Electronic Ordering - All Locations) Patient Can Go To The Location Of Their Choice, [id number] 05/01/2016 16:04:29 05/01/20 16 05/01/2016 bun (bloo d urea nitro gen), serum or plasm a BUN 15 mg/dL (5-18) Testi ng perfo rmed or repor jenaro by [facility] Refer ence Labor atori es, a Servi ce of [facility] Medic al [facility]e [facility], [address] [place] [address] Chana england MD, PhD, [facility] Not Available [facility] (Centralized Electronic Ordering - [...] ng perfo rmed or repor jenaro by [facility] Refer ence Labor atori es, a Servi ce of [facility] Medic al [facility], [address] [place] [address] Chana england MD, PhD, [facility] Not Available [facility] (Centralized Electronic Ordering - [...] or repor jenaro by [facility] Labor at[facility] es, a Servi ce of [facility], [address] [place] [address] Chana england MD, PhD, Medic al [facility] tor Not Available [facility] (Centralized Electronic Ordering - All Locations) Patient Can Go To The Location Of Their Choice, 05/01/2016 14:10:05/01/2005/01/2016 urine colle ction perio d urine collection period RANDOM hrs Testi ng perfo rmed or repor jenaro by [facility], a Servi [facility], [address] [place] [address] Chana england MD, PhD, [facility] al [facility] tor Not Available [facility] (Centralized Electronic Ordering - All Locations) Patient Can Go To The Location Of Their Choice, 05/01/2016 14:06:02 11/17/19 18 11/16/2017 patie nt healt h quest ionna gilebrt depre ssion asses sment * PHQ-9 negati ve Not Available [facility] [address], [place], [address], 11/16/2017 13:14:48 03/26/20 19 03/28/2019 lipid panel , serum cholesterol, total 198 mg/dL <170 high Not Available [facility] [address], [address], 03/28/2019 19:17:33 03/26/20 19 03/28/2019 lipid panel , serum HDL cholesterol 80 mg/dL >45 normal Not Available [facility] [address], [address], 03/28/2019 19:17:33 03/26/20 19 03/28/2019 lipid panel , serum triglyceride s 86 mg/dL <90 normal Not Available [facility] [address], [address], 03/28/2019 19:17:33 03/26/2003/28/2019 lipid panel , serum [...] 310(1 9): 2061- 2068 (http ://ed ucati on.MCT Danismanlik AS (MCTAS: [place]) clementineFolica. [employer]/f aq/FA Q164) Not Available [facility] [address], [address], 03/28/2019 19:17:33 03/26/20 19 03/28/2019 lipid panel , serum chol/HDLC ratio 2.5 (calc ) <5.0 normal Not Available [facility] [address] [place], [place], [address], 03/28/2019 19:17:33 03/26/20 19 03/28/2019 lipid panel , serum non HDL cholesterol 118 mg/dL _(jackie c) <120 normal For patie nts with diabe gurinder plus 1 major ASCVD risk facto r, treat ing to a non-H DL-C goal of <100 mg/dL (LDL- C of <70 mg/dL ) is consi dered a thera peuti c optio n. Not Available [facility] [place] [facility] [address] [place], [place], [address], 03/28/2019 19:17:33 03/26/20 19 03/28/2019 BMP, serum or plasm a glucose 82 mg/dL 65-99 normal Fasti ng refer ence inter be Not Available [facility] [place] [facility] [address] [place], [place], [address], 03/28/2019 19:17:33 03/26/20 19 03/28/2019 BMP, serum or plasm a urea nitrogen (BUN) 15 mg/dL 7-20 normal Not Available [facility] [place] [facility] [address] [place], [place], [address], 03/28/2019 19:17:33 03/26/20 19 03/28/2019 BMP, serum or plasm a creatinine 1.16 mg/dL 0.60-1 .26 normal Not Available [facility] [place] [facility] [address] [place], [place], [address], 03/28/2019 19:17:33 03/26/2003/28/2019 BMP, serum or plasm a eGFR non-afr. gibraltarian 91 mL/mi n/1.7 3m2 > or = 60 normal Not Available [facility] [place] [facility] [address] [place], [place], [address], 03/28/2019 19:17:33 03/26/20 19 03/28/2019 BMP, serum or plasm a eGFR 105 mL/mi n/1.7 3m2 > or = 60 normal Not Available [facility] [address], [address], 03/28/2019 19:17:33 03/26/20 19 03/28/2019 BMP, serum or plasm a BUN/creatini ne ratio NOT APPLIC ABLE (calc ) 6-22 Not Available [facility] [address], [address], 03/28/2019 19:17:33 03/26/20 19 03/28/2019 BMP, serum or plasm a sodium 140 mmol/ L 135-14 6 normal Not Available [facility] [address], [address], 03/28/2019 19:17:33 03/26/20 19 03/28/2019 BMP, serum or plasm a potassium 4.0 mmol/ L 3.8-5. 1 normal Not Available [facility] [address], [address], 03/28/2019 19:17:33 03/26/20 19 03/28/2019 BMP, serum or plasm a chloride 100 mmol/ L 98-110 normal Not Available [facility] [address], [address], 03/28/2019 19:17:33 03/26/20 19 03/28/2019 BMP, serum or plasm a carbon dioxide 31 mmol/ L 20-32 normal Not Available [facility] [address], [address], 03/28/2019 19:17:33 03/26/20 19 03/28/2019 BMP, serum or plasm a calcium 10.0 mg/dL 8.9-10 .4 normal Not Available [facility] [address] [place], [place], [address], 03/28/2019 19:17:33 03/26/20 19 03/28/2019 CBC w/ auto diff white blood cell count 6.0 thous and/u L 3.8-10 .8 normal Not Available [facility] [place] [facility] [address], [place], [address], 03/28/2019 19:17:34 03/26/20 19 03/28/2019 CBC w/ auto diff red blood cell count 5.96 cecy on/uL 4.20-5 .80 high Not Available [facility] [address], [place], [address], 03/28/2019 19:17:34 03/26/20 19 03/28/2019 CBC w/ auto diff hemoglobin 17.1 g/dL 13.2-1 7.1 normal Not Available [facility] [address], [place], [address], 03/28/2019 19:17:34 03/26/20 19 03/28/2019 CBC w/ auto diff hematocrit 50.3 % 38.5-5 0.0 high Not Available [facility] [address], [place], [address], 03/28/2019 19:17:34 03/26/20 19 03/28/2019 CBC w/ auto diff MCV 84.4 fL 80.0-1 00.0 normal Not Available [facility] [address], [place], [address], 03/28/2019 19:17:34 03/26/20 19 03/28/2019 CBC w/ auto diff MCH 28.7 pg 27.0-3 3.0 normal Not Available [facility] [address], [place], [address], 03/28/2019 19:17:34 03/26/20 19 03/28/2019 CBC w/ auto diff MCHC 34.0 g/dL 32.0-3 6.0 normal Not Available [facility] [place] [facility] [address], [place], [address], 03/28/2019 19:17:34 03/26/20 19 03/28/2019 CBC w/ auto diff RDW 12.5 % 11.0-1 5.0 normal Not Available [facility] [place] [facility] [address], [place], [address], 03/28/2019 19:17:34 03/26/20 19 03/28/2019 CBC w/ auto diff platelet count 206 thous and/u L 140-40 0 normal Not Available [facility] [place] [facility] [address], [place], [address], 03/28/2019 19:17:34 03/26/20 19 03/28/2019 CBC w/ auto diff MPV 10.0 fL 7.5-12 .5 normal Not Available [facility] [place] [facility] [address], [place], [address], 03/28/2019 19:17:34 03/26/20 19 03/28/2019 CBC w/ auto diff absolute neutrophils 2574 cells /uL 1500-7 800 normal Not Available [facility] [place] [facility] [address], [place], [address], 03/28/2019 19:17:34 03/26/20 19 03/28/2019 CBC w/ auto diff absolute lymphocytes 2670 cells /uL 850-39 00 normal Not Available [facility] [place] [facility] [address], [place], [address], 03/28/2019 19:17:34 03/26/20 19 03/28/2019 CBC w/ auto diff absolute monocytes 582 cells /uL 200-95 0 normal Not Available [facility] [place] [facility] [address], [place], [address], 03/28/2019 19:17:34 03/26/20 19 03/28/2019 CBC w/ auto diff absolute eosinophils 144 cells /uL 15-500 normal Not Available [facility] [place] [facility] [address], [place], [address], 03/28/2019 19:17:34 03/26/20 19 03/28/2019 CBC w/ auto diff absolute basophils 30 cells /uL 0-200 normal Not Available [facility] [place] [facility] [address], [place], [address], 03/28/2019 19:17:34 03/26/20 19 03/28/2019 CBC w/ auto diff neutrophils 42.9 % normal Not Available [facility] [place] [facility] [address], [place], [address], 03/28/2019 19:17:34 03/26/20 19 03/28/2019 CBC w/ auto diff lymphocytes 44.5 % normal Not Available [facility] [place] [facility] [address], [place], [address], 03/28/2019 19:17:34 03/26/2003/28/2019 CBC w/ auto diff monocytes 9.7 % normal Not Available [facility] [place] [facility] [address], [place], [address], 03/28/2019 19:17:34 03/26/20 19 03/28/2019 CBC w/ auto diff eosinophils 2.4 % normal Not Available [facility] [place] [facility] [address], [place], [address], 03/28/2019 19:17:34 03/26/20 19 03/28/2019 CBC w/ auto diff basophils 0.5 % normal Not Available [facility] [address], [address], 03/28/2019 19:17:34 03/26/20 19 03/28/2019 prote in:cr eatin ine ratio , urine creatinine, random urine 122 mg/dL 20-320 normal Not Available [facility] [address], [place], [address], 03/28/2019 19:17:34 03/26/20 19 03/28/2019 prote in:cr eatin ine ratio , urine protein/crea tinine ratio 49 mg/g_ creat 22-128 normal Not Available [facility] [address], [address], 03/28/2019 19:17:34 03/26/20 19 03/28/2019 prote in:cr eatin ine ratio , urine protein, total, random ur 6 mg/dL 5-25 normal Not Available [facility] [address], [place], [address], 03/28/2019 19:17:34 02/16/20 20 02/17/2020 CT + [...] Go To The Location Of Their Choice, [id number] 02/17/2020 08:00:41 02/16/20 20 02/17/2020 CT + [...] neede d. Conta ct phone numbe r . Thera peuti c failu re or succe ss canno t be deter mined with the Aptim a Combo 2 assay since nucle ic acid may persi st follo wing appro priat e antim icrob ial thera py. The [facility] se Cont[facility] ol and Preve ntion ([facility]) recom mends confi rmato ry retes ting using cultu re or a diffe rent nucle ic acid ampli ficat ion test when posit kylie resul ts occur , if indic ated. Not Available [facility] (Centralized Electronic Ordering - All Locations) Patient Can Go To The Location Of Their Choice, [address] 02/17/2020 08:00:41 02/16/20 20 02/16/2020 patie nt healt h quest ionna gilbert preston * PHQ-9 negati ve Not Available [facility] [address], [place], [address], 02/14/2020 14:23:39 04/24/20 20 04/27/2020 lipid panel , serum cholesterol, total 196 mg/dL <200 normal Not Available [facility] [address], [address], 04/27/2020 14:40:16 04/24/20 20 04/27/2020 lipid panel , serum HDL cholesterol 69 mg/dL > or = 40 normal Not Available [facility] [place] [facility] [address], [address], 04/27/2020 14:40:16 04/24/20 20 04/27/2020 lipid panel , serum triglyceride s 69 mg/dL <150 normal Not Available [facility] [place] [facility] [address], [address], 04/27/2020 14:40:16 04/24/20 20 04/27/2020 lipid panel [...] com/f aq/FA Q164) Not Available [facility] [place] [facility] [address] [place], [place], [address], 04/27/2020 14:40:16 04/24/20 20 04/27/2020 lipid panel , serum chol/HDLC ratio 2.8 (calc ) <5.0 normal Not Available [facility] [place] [facility] [address] [place], [place], [address], 04/27/2020 14:40:16 04/24/20 20 04/27/2020 lipid panel , serum non HDL cholesterol 127 mg/dL _(jackie c) <130 normal For patie nts with diabe gurinder plus 1 major ASCVD risk facto r, treat ing to a non-H DL-C goal of <100 mg/dL (LDL- C of <70 mg/dL ) is consi dered a thera peuti c optio n. Not Available [facility] [place] [facility] [address] [place], [place], [address], 04/27/2020 14:40:16 04/24/2004/27/2020 BMP, serum or plasm a glucose 85 mg/dL 65-99 normal Fasti ng refer ence inter be Not Available [facility] [place] [facility] [address] [place], [place], [address], 04/27/2020 14:40:17 04/24/2004/27/2020 BMP, serum or plasm a urea nitrogen (BUN) 17 mg/dL 7-25 normal Not Available [facility] [place] [facility] [address] [place], [place], [address], 04/27/2020 14:40:17 04/24/20 20 04/27/2020 BMP, serum or plasm a creatinine 1.19 mg/dL 0.60-1 .35 normal Not Available [facility] [place] [facility] [address] [place], [place], [address], 04/27/2020 14:40:17 04/24/20 20 04/27/2020 BMP, serum or plasm a eGFR non-afr. gibraltarian 87 mL/mi n/1.7 3m2 > or = 60 normal Not Available [facility] [place] [facility] [address], [place], [address], 04/27/2020 14:40:17 04/24/20 20 04/27/2020 BMP, serum or plasm a eGFR 101 mL/mi n/1.7 3m2 > or = 60 normal Not Available [facility] [place] [facility] [address] [place], [place], [address], 04/27/2020 14:40:17 04/24/20 20 04/27/2020 BMP, serum or plasm a BUN/creatini ne ratio NOT APPLIC ABLE (calc ) 6-22 Not Available [facility] [place] [facility] [address], [place], [address], 04/27/2020 14:40:17 04/24/20 20 04/27/2020 BMP, serum or plasm a sodium 140 mmol/ L 135-14 6 normal Not Available [facility] [place] [facility] [address], [place], [address], 04/27/2020 14:40:17 04/24/20 20 04/27/2020 BMP, serum or plasm a potassium 4.6 mmol/ L 3.5-5. 3 normal Not Available [facility] [address], [place], [address], 04/27/2020 14:40:17 04/24/20 20 04/27/2020 BMP, serum or plasm a chloride 100 mmol/ L 98-110 normal Not Available [facility] [place] [facility] [address], [place], [address], 04/27/2020 14:40:17 04/24/20 20 04/27/2020 BMP, serum or plasm a carbon dioxide 30 mmol/ L 20-32 normal Not Available [facility] [place] [facility] [address], [place], [address], 04/27/2020 14:40:17 04/24/20 20 04/27/2020 BMP, serum or plasm a calcium 9.9 mg/dL 8.6-10 .3 normal Not Available [facility] [place] [facility] [address], [place], [address], 04/27/2020 14:40:17 04/24/20 20 04/27/2020 CBC w/ auto diff white blood cell count 5.9 thous and/u L 3.8-10 .8 normal Not Available [facility] [place] [facility] [address], [place], [address], 04/27/2020 14:40:18 04/24/20 20 04/27/2020 CBC w/ auto diff red blood cell count 5.84 cecy on/uL 4.20-5 .80 high Not Available [facility] [place] [facility] [address], [place], [address], 04/27/2020 14:40:18 04/24/20 20 04/27/2020 CBC w/ auto diff hemoglobin 17.5 g/dL 13.2-1 7.1 high Not Available [facility] [place] [facility] [address], [place], [address], 04/27/2020 14:40:18 04/24/20 20 04/27/2020 CBC w/ auto diff hematocrit 49.4 % 38.5-5 0.0 normal Not Available [facility] [place] [facility] [address], [place], [address], 04/27/2020 14:40:18 04/24/20 20 04/27/2020 CBC w/ auto diff MCV 84.6 fL 80.0-1 00.0 normal Not Available [facility] [place] [facility] [address], [place], [address], 04/27/2020 14:40:18 04/24/20 20 04/27/2020 CBC w/ auto diff MCH 30.0 pg 27.0-3 3.0 normal Not Available [facility] [place] [facility] [address], [place], [address], 04/27/2020 14:40:18 04/24/20 20 04/27/2020 CBC w/ auto diff MCHC 35.4 g/dL 32.0-3 6.0 normal Not Available [facility] [place] [facility] [address], [place], [address], 04/27/2020 14:40:18 04/24/20 20 04/27/2020 CBC w/ auto diff RDW 12.3 % 11.0-1 5.0 normal Not Available [facility] [place] [facility] [address], [place], [address], 04/27/2020 14:40:18 04/24/20 20 04/27/2020 CBC w/ auto diff platelet count 217 thous and/u L 140-40 0 normal Not Available [facility] [address], [place], [address], 04/27/2020 14:40:18 04/24/20 20 04/27/2020 CBC w/ auto diff MPV 10.0 fL 7.5-12 .5 normal Not Available [facility] [place] [facility] [address], [place], [address], 04/27/2020 14:40:18 04/24/20 20 04/27/2020 CBC w/ auto diff absolute neutrophils 2661 cells /uL 1500-7 800 normal Not Available [facility] [address] [place], [address], 04/27/2020 14:40:18 04/24/20 20 04/27/2020 CBC w/ auto diff absolute lymphocytes 2496 cells /uL 850-39 00 normal Not Available [facility] [place] [facility] [address], [place], [address], 04/27/2020 14:40:18 04/24/20 20 04/27/2020 CBC w/ auto diff absolute monocytes 543 cells /uL 200-95 0 normal Not Available [facility] [place] [facility] [address], [place], [address], 04/27/2020 14:40:18 04/24/20 20 04/27/2020 CBC w/ auto diff absolute eosinophils 159 cells /uL 15-500 normal Not Available [facility] [place] [facility] [address], [place], [address], 04/27/2020 14:40:18 04/24/20 20 04/27/2020 CBC w/ auto diff absolute basophils 41 cells /uL 0-200 normal Not Available [facility] [place] [facility] [address], [place], [address], 04/27/2020 14:40:18 04/24/20 20 04/27/2020 CBC w/ auto diff neutrophils 45.1 % normal Not Available [facility] [place] [facility] [address], [place], [address], 04/27/2020 14:40:18 04/24/20 20 04/27/2020 CBC w/ auto diff lymphocytes 42.3 % normal Not Available [facility] [place] [facility] [address], [place], [address], 04/27/2020 14:40:18 04/24/20 20 04/27/2020 CBC w/ auto diff monocytes 9.2 % normal Not Available [facility] [place] [facility] [address], [place], [address], 04/27/2020 14:40:18 04/24/20 20 04/27/2020 CBC w/ auto diff eosinophils 2.7 % normal Not Available [facility] [place] [facility] [address], [place], [address], 04/27/2020 14:40:18 04/24/20 20 04/27/2020 CBC w/ auto diff basophils 0.7 % normal Not Available [facility] [address], [place], [address], 04/27/2020 14:40:18 04/24/20 20 04/27/2020 prote in, total , urine protein, total, random ur 16 mg/dL 5-25 normal Not Available [address], [place], [address], 04/27/2020 14:40:18 04/24/20 20 04/27/2020 quant ifero n(R)- TB gold plus, 1 tube quantiferon( R)-TB gold plus, 1 tube NEGATI VE negati ve normal Negat kylie test resul t. M. tuber culos is compl ex infec tion unlik andres. Not Available [facility] [address], [place], [address], 04/27/2020 14:40:19 04/24/20 20 04/27/2020 quant ifero n(R)- TB gold plus, 1 tube nil 0.01 IU/mL normal Not Available [facility] [address], [place], [address], 04/27/2020 14:40:19 04/24/20 20 04/27/2020 quant ifero n(R)- TB gold plus, 1 tube mitogen-nil >10.00 IU/mL normal Not Available [facility] [address], [place], [address], 04/27/2020 14:40:19 04/24/20 20 04/27/2020 quant ifero n(R)- TB gold plus, 1 tube TB1-nil 0.00 IU/mL normal Not Available [facility] [place] [facility] [address], [place], [address], 04/27/2020 14:40:19 04/24/20 20 04/27/2020 quant ifero [...] refer to https ://gary bojorquez on.qu inder [employer]. [employer]/f aq/FA Q204 (This link is being provi ded for infor mukund guerrier/ educa abi l purpo ses only. ) Not Available [facility] [address] [place], [address], 04/27/2020 14:40:19 04/17/20 16 04/16/2016 echoc ardio gram No observ ation record ed. ecardillo [facility] [address], [place], [address], 04/18/2016 09:59:41 04/21/20 16 04/16/2016 elect yo darren am No observ ation record ed. [email or web address] [facility] [address], [place], [address], 04/27/2018 13:51:25 Result Notes None recorded. 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 Gautam Dougherty MD [address] [place] [address] [place], [address], [facility] 4 17:40:42 Acute upper respiratory infection 93728893 Completed 200804/25/2013 Gautam Dougherty MD [address] [place] [address] [place], [address], [facility] 3 14:16:05 Asthma 501049975 Active Gautam Dougherty MD [address] [place] [address] [place], [address], [facility] 4 17:40:42 Wheezing 64254992 Completed 200804/25/2013 Gautam Dougherty MD [address] [place] [address] [place], [address], [facility] 3 14:16:05 Viremia 2525619 Completed 04/25/2013 Gautam Dougherty MD [address] [place] [address] [place], [address], [facility] 3 14:16:05 Problem Notes None recorded. Procedures Surgical History Date Name Laterality Status Provider Name and Address Organization Details Recorded Time Appendectomy completed Gautam Dougherty MD [address] [place] [address] [place], [address], [facility] 04/25/2013 14:28:54 Imaging Results Imaging Date Name Status LastModified by Organization Details LastModified Time 04/16/2016 echocardiogram completed [facility] [address], [place], [address], 04/18/2016 09:59:41 04/16/2016 electrocardiogram completed [address] [facility] [address], [place], [address], 04/27/2018 13:51:25 Procedure Notes None recorded. Medical [...] 0 194.31 cm 15 % 20.6 kg/m2 76270.1 7 g 122 mm[Hg] 80 mm[Hg] Rula Greenfield [facility] 0 10:18:43 Date Recorded Body height Provider Name an d Address Organization Details Last Updated DateTime 04/18/2020 194.31 cm Regina Champion [facility] 04/18/2020 15:44:56 Date Recorded Body height Body weight Body mass index (BMI) Systolic blood pressure Diastolic blood pressure Provider Name and Address Organization Details Last Updated DateTime 02/21/2016 193.04 cm 57366.86 g 18.3 kg/m2 104 mm[Hg] 58 mm[Hg] Desiree David M.A. [facility] 6 15:57:59 Date Recorded Body height Body mass index (BMI) Body weight Systolic blood pressure Diastolic blood pressure Provider Name and Address Organization Details Last Updated DateTime 11/16/2017 194.31 cm 19.9 kg/m2 49171.18 g 128 mm[Hg] 76 mm[Hg] Kristy Grimes R.N. [facility] 8 13:20:54 Social History Question Answer Notes LastModified by Organizat ion Details LastModified Time Tobacco Smoking Status Never Smoker Lian Gaye chapman, [facility] 04/25/2013 14:10:35 Have There Been [...] available 02/28/2016 Year In School [employer] [facility] 2019 Information not available 11/16/2017 Parent's Name Flora Information not available 07/12/2011 Parent's Name Todd Verde-, [facility] Information not available 07/12/2011 DSS/DCF Custody [...] Not available 04/27/2014 16:37:39 Maternal Grandmother Problem HI at 62 slevin Not available 04/27/2014 16:37:39 [...] 02:33:45 OPV 09/26/19 01 completed Douglas Amin, [facility] 12/23/2011 08:41:10 Hib, unspecified formulation 09/26/19 01 [facility]/2011 08:41:10 DTaP, unspecified formulation 05/16/20 05 completed Douglas Amin [facility] 12/23/2011 08:41:10 OPV 05/16/20 05 [facility] 12/23/2011 08:41:10 Hib, unspecified formulation 07/06/19 99 completed Douglas Amin [facility] 12/23/2011 08:41:10 Hep B, unspecified formulation 12/17/19 07 [facility] 12/23/2011 08:41:10 DTaP, unspecified formulation 09/26/19 [facility] 12/23/2011 08:41:10 BCG 06/02/19 99 [facility] 12/23/2011 08:41:10 MMR 04/19/20 [facility] 12/23/2011 08:41:10 DTaP, unspecified formulation 08/06/19 99 [facility] 12/23/2011 08:41:10 OPV 07/06/19 99 [facility] 12/23/2011 08:41:10 DTaP, unspecified formulation 07/06/19 99 [facility] 12/23/2011 08:41:10 Hep B, unspecified formulation 10/20/19 07 [facility] 12/23/2011 08:41:10 Hib, unspecified formulation 08/06/19 99 [facility] 12/23/2011 08:41:10 OPV 08/06/19 99 [facility] 12/23/2011 08:41:10 Hep B, unspecified formulation 03/19/20 07 completed Not Available [facility] 07/12/2011 03:16:44 MMR 03/19/20 07 completed Not Available [facility] 07/12/2011 03:19:09 meningococcal MCV4P 02/28/20 16 completed Not Available [facility] 09/24/2019 02:36:47 HPV9 02/16/20 20 cancelled patient objection Gautam Dougherty MD [address] [place] [address], [place], [address], [facility] 02/16/2020 10:38:37 Hep A, adult 02/16/20 20 completed Rula chapman [facility] 02/16/2020 10:46:58 meningococcal B, OMV 02/16/20 20 completed Rula chapman [facility] 02/16/2020 10:46:58 meningococcal B, OMV 04/18/20 20 completed Regina Champion ari [facility] 04/18/2020 15:50:28 Past Encounters Encounter ID Performer Location Encounter Start Date Encounter Closed Date Diagnosis/Indication Diagnosis SNOMED-CT Code Diagnosis ICD10 Code Diagnosis Note [id number] Gautam Dougherty MD [facility] [address] [place] [phone] 4 03/19/2007 15:23:17 03/19/2007 18:08:45 [id number] Gautam Dougherty MD [facility] [address] [place] [id number] 4 01/14/2008 14:05:28 01/14/2008 15:12:49 [id number] Bigg Samuel MD [facility] [address] [place] [id number] 4 10/16/2008 09:39:00 10/16/2008 10:16:26 [id number] Bigg Samuel MD [facility] [address] [place] [id number] 4 10/20/2008 14:39:36 05/17/2009 01:23:50 [id number] Bigg Samuel MD [facility] [address] [place] [id number] 4 07/02/2009 13:59:55 07/02/2009 14:44:54 [id number] Gautam Dougherty MD [facility] [address] [place] [id number] 4 01/01/2012 10:42:25 01/01/2012 11:38:53 [id number] Gautam Dougherty MD [facility] [address] [place] [id number] 4 04/25/2013 14:02:57 04/25/2013 15:53:22 Well child [id number] Renal dysplasia 164520003 Post reflux damage Asthma 223869548 [id number] Gautam Dougherty MD [facility] [address] [address] 04/27/2014 15:57:17 04/27/2014 17:41:01 Well child 690788633 Renal dysplasia 811861706 Post reflux damage Asthma 998512489 [id number] Gautam Dougherty MD [facility] [address] [phone] 02/21/2016 15:38:31 02/21/2016 17:29:08 Well child 627350067 Z00.129 Renal dysplasia 58606944 1 Q61.4 Abnormal heart beat 3611 58874 R00.9 [id number] Bernarda Batista MD [facility] [address] [address] 02/28/2016 15:03:51 02/28/2016 15:24:42 Active or passive immunization 356441700 Z23 [id number] Gautam Dougherty MD [address] [address] 11/16/2017 13:11:14 11/16/2017 13:52:56 Adult health examination 669910832 Z00.00 Normal bod y mass index 92429178 Z68.1 Renal dysplasia 30134629 1 Q61.4 [id number] Gautam Dougherty MD [address] [address] 02/16/2020 10:09:40 02/16/2020 12:00:07 Active or passive immunization 464218217 Z23 Adult [facility] th examination 873773131 Z00.00 Normal bod y mass index 17612653 Z68.20 Renal dysplasia 77163997 1 Q61.4 [id number] Elenita Dasilva DO [facility] [address] [address] 4 04/18/2020 15:43:24 04/18/2020 16:17:23 Active or passive immunization 358267051 Z23 Health Concerns Section Related Observation LastModified by Organization Detai ls LastModified Time None Recorded Concern Status LastModified by Organization Details LastModified Time None Recorded Advance Directives Directive None Recorded Payers Encounter Date Sequence Insurance Name Policy Number Policy Booth Covered Member ID Booth Member ID Guarantor Name 02/21/2016 1 [place] [id number] Flora Cespedes [id number] Todd Cespedes 02/28/2016 1 [place] [id number] Flora Cespedes [id number] Todd Cespedes 11/16/2017 1 [employer] - CHOICE (POS II) Kalpana Cespedes [id number] Todd Cespedes 02/16/2020 1 [employer] - CHOICE (POS II) Kalpana Cespedes [id number] Todd Cespedes 04/18/2020 1 [employer] (EPO) [id number] Flora Cespedes [id number] Todd Cespedes Notes Date Note Type Note Provider Name and Address Organization Details Recorded Time 02/21/2016 text/html Pt here w/older brother. I told him about needing Menactra #1 and HPV #1 and to bring parents for permission when and if he gets them. Gautam Dougherty MD [address] [place] [address], , [facility] 02/21/2016 17:28:34 02/16/2020 text/html Pt is afebrile. No ill symptoms in >10 days. No known Covid 19 exposure. Gautam Dougherty MD [address] [place] [address], , [facility] 02/16/2020 11:56:45
--- OUTSIDE RECORDS SUMMARY | 2025-01-05 16:08 | XMS_ITS | Clinical Summary ---
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
== END ==
LOC: HO.CARD 13:54
PROVIDERS: Visit Provider Internal Medicine Cardiovascular Disease
DX: R42 Dizziness and giddiness (principal)
CPT/HCPCS: 93246; 93306

== ENCOUNTER → 2025-01-05 13:59 | Outpatient (BNV) | payer BC, SELFPAY | PROVIDERS: Visit Provider Internal Medicine Cardiovascular Disease | DX: I34.0 Nonrheumatic mitral (valve) insufficiency (principal) | CPT/HCPCS: 93306 ==